=== PATIENT | male | born 1980 | race Caucasian/White ===

== ENCOUNTER 2018-08-17 01:40 | Inpatient (IN) | payer OTHER ==
[2018-08-17 02:04] VITALS: BMI 25.8
--- NOTE | 2018-08-17 02:40 | PDOC ---
History of Present Illness - General Chief Complaint: RX Refill Stated Complaint: INJURY Time Seen by Provider: 08/17/18 02:40 History Source: Patient - History of Present Illness Initial Comments: 08/17/18 03:03 37 year old man pmhx HTn fall 899 yesterday evening was wlaking home and fell on the street fell on the R knee and felt that the knee twisted and he had some popping unable to bear weight called ems went to [facility] - XRs done, but did not understand the results can't recall what was done took tylenol cant bear weiht by himself but called ems decreased sensation on plantar protion of R foot no prior knee history or trauma 08/17/18 03:06 Past History - Past Medical History Allergies/Adverse Reactions: Allergies Allergy/AdvReac Type Severity Reaction Status Date / Time No Known Allergies Allergy Verified 08/17/18 02:02 Home Medications: Ambulatory Orders NK [No Known Home Medication] 08/17/18 - Suicide/Smoking/Psychosocial Hx Smoking History: Never smoked Have you smoked in the past 12 months: No Information on smoking cessation initiated: No Hx Alcohol Use: No Drug/Substance Use Hx: No *Physical Exam - Vital Signs Last Vital Signs Temp Pulse Resp BP Pulse Ox 97.6 F 88 20 132/79 98 08/17/18 02:02 08/17/18 02:02 08/17/18 02:02 08/17/18 02:02 08/17/18 02:02 - Physical Exam Comments: 08/17/18 03:05 R knee swelling neurovascularly intact 08/17/18 03:16 externally rotated shortened R limb R thigh tender to palpation 08/17/18 03:43 palpable popliteal oulsesm dp, pt Moderate Sedation - Procedure Monitoring Vital Signs: Procedure Monitoring Vital Signs Temperature 97.6 F 08/17/18 02:02 Pulse Rate 88 08/17/18 02:02 Respiratory Rate 20 08/17/18 02:02 Blood Pressure 132/79 08/17/18 02:02 O2 Sat by Pulse Oximetry (%) 98 08/17/18 02:02 ED Treatment Course - LABORATORY CBC & Chemistry Diagram: 08/17/18 03:34 08/17/18 03:34 Medical Decision Making - Medical Decision Making 08/17/18 03:06 ED Course: Consider hip fx vs knee fx vs dislocation vs muscle contusion cbc, cmp, pt/inr, ptt, type and screen, 08/17/18 04:46 XR: distal R femoral head fx with posterior displacement 08/17/18 04:54 consult placed to orthopedics Medicine contacted for admission patient pain controlled with morphine 08/17/18 05:02 EKG: normal sinus rhythm HR 80, narrow QRS, ST and T wave segments and morphology normal. 08/17/18 05:30 Patient admitted to medicine *DC/Admit/Observation/Transfer Diagnosis at time of Disposition: Femur fracture, right - Discharge Dispostion Condition at time of disposition: Stable Decision to Admit order: Yes - Referrals - Patient Instructions - Post Discharge Activity
--- NOTE | 2018-08-17 03:05 | PDOC ---
Attending Attestation - Resident Resident Name: BowenVick santa - ED Attending Attestation I have performed the following: I have examined & evaluated the patient, The case was reviewed & discussed with the resident, I agree w/resident's findings & plan, Exceptions are as noted - HPI HPI: 08/17/18 03:03 37 yo M h/o HTN Pt present s/p fall on the street onto the right knee last night Unable to bear weight Xrays performed Since that time, he was unable to bear weight He lives by himself and could not care for himself and called EMS - Physicial Exam PE: 08/17/18 03:04 GENERAL: The patient is in no acute distress. HEAD: Normal with no signs of trauma. EYES: PERRLA, EOMI, sclera anicteric, conjunctiva clear. ENT: Ears normal, nares patent, oropharynx clear without exudates. Moist mucous membranes. NECK: Normal range of motion, supple without lymphadenopathy, JVD, or masses. LUNGS: Breath sounds equal, clear to auscultation bilaterally. No wheezes, and no crackles. HEART:Regular rate and rhythm, normal S1 and S2 without murmur, rub or gallop. ABDOMEN: Soft, nontender, normoactive bowel sounds. No guarding, no rebound. No masses palpable. EXTREMITIES: Normal range of motion, no edema. No clubbing or cyanosis. No erythema, or tenderness. NEUROLOGICAL: Cranial nerves II through XII grossly intact. Normal speech. No focal neurological deficits. MUSCULOSKELETAL: Back non-tender to palpation, no CVA tenderness SKIN: Warm, Dry, normal turgor, no rashes or lesions noted. - Medical Decision Making 08/17/18 03:05 Knee pain s/p fall yesterday Will do Xray PErcocet/Motrin Re Assess 08/17/18 04:10 Laboratory Tests 08/17/18 03:34 PT with INR 12.00 INR 1.02 PTT (Actin FS) 28.3 08/17/18 05:01 Xray demonstrates right distal femur fracture Morphine given already, will give additional meds Will admit consult ortho in the morning EKG - Twelve-lead EKG was performed and reviewed by me. There is normal sinus rhythm with a normal rate. The axis is normal. The intervals are normal. There are no ST or T wave abnormalities. Impression: Normal twelve-lead EKG
[2018-08-17] MEDS ORDERED: ACETAMINOPHEN 500 MG TABLET (FP) PO ONE (03:06)
[2018-08-17] MEDS ORDERED: morphine CARPU-JECT 4 MG/1 ML DISP.SYRIN IVPUSH ONE ×2 (03:14→04:42)
[2018-08-17 03:53] LABS: BASO % 0.3 % (0-2.0); EOS % 0.1 % (0-4.5); HEMATOCRIT 35.7 % (35.4-49); HEMOGLOBIN 12.6 GM/dL (11.7-16.9); LYMPH % 24.5 % (8-40); MCH 33.2 pg (25.7-33.7); MCHC 35.2 g/dl (32.0-35.9); MEAN CELL VOLUME 94.2 fl (80-96); MONO % 11.6 % (3.8-10.2); NEUT % 63.5 % (42.8-82.8); PLATELET COUNT 257 K/MM3 (134-434); RBC 3.79 M/mm3 (4.00-5.60); RDW 13.3 % (11.9-15.9); WHITE BLOOD COUNT 7.1 K/mm3 (4.0-10.0)
[2018-08-17] MEDS ORDERED: morphine SULFATE 4 MG/ML VIAL ONE ×4 (03:53→12:17)
[2018-08-17 04:06] LABS: INR 1.02 (0.83-1.09)
[2018-08-17 04:09] LABS: ACTIVATED PTT 28.3 SECONDS (25.2-36.5)
[2018-08-17 04:20] LABS: ALBUMIN 3.5 g/dl (3.4-5.0); ALK PHOS 153 U/L (45-117); ANION GAP 8 MMOL/L (8-16); BILIRUBIN,TOTAL 2.5 mg/dL (0.2-1); BLOOD UREA NITROGEN 8 mg/dL (7-18); CALCIUM 8.5 mg/dL (8.5-10.1); CHLORIDE 96 mmol/L (98-107); CO2 27 mmol/L (21-32); CREATININE 0.8 mg/dL (0.55-1.3); GLUCOSE,RANDOM 103 mg/dL (74-106); POTASSIUM 3.5 mmol/L (3.5-5.1); SGOT/AST 121 U/L (15-37); SGPT/ALT 137 U/L (13-61); SODIUM 131 mmol/L (136-145); TOT PROT 7.5 g/dl (6.4-8.2)
--- NOTE | 2018-08-17 05:37 | PN ---
Teaching Attending Note Name of Resident: Karlene Mejia ATTENDING PHYSICIAN STATEMENT I saw and evaluated the patient. I reviewed the resident's note and discussed the case with the resident. I agree with the resident's findings and plan as documented. SUBJECTIVE: Patient is a 37 year old man with PMH of HTN, cholecystectomy and syncope who fell down on the street yesterday evening while walking home. He fell on the right knee and felt that the knee twisted and he had some popping. Has been unable to bear weight. Called EMS and went to [facility] - xrays done, but did not understand the results. Can't recall what was done. Took tylenol but still can't bear weight. Has decreased sensation on plantar portion of R foot. No prior knee history or trauma. OBJECTIVE: Alert Vital Signs Period Temp Pulse Resp BP Sys/Rudolph Pulse Ox Last 24 Hr 97.6 F 88 20 132/79 98-98 HEENT: No Jaundice, eye redness or discharge, PERRLA, EOMI. Normocephalic, atraumatic. External ears are normal and hearing is grossly intact. No nasal discharge. Neck: Supple, nontender. No palpable adenopathy or thyromegaly. No JVD Chest: Good effort. Clear to auscultation and percussion. Heart: Regular. No S3, rub or murmur Abdomen: Not distended, soft, nontender and no HSM. No rebound or guarding. Normoactive bowel sounds. Ext: Peripheral pulses intact. No leg edema. Right knee swelling. Externally rotated shortened right lower extremity. Right thigh tender to palpation Skin: Warm and dry. No petechiae, rash or ecchymosis. Neuro: Alert. Oriented x3. CN 2-12 grossly intact. Sensation grossly intact in all four extremities and DTR are symmetric. Home Medications Medication Instructions Recorded NK [No Known Home Medication] 08/17/18 Abnormal Lab Results 08/17/18 08/17/18 03:34 03:34 RBC 3.79 L MPV 7.0 L Monocytes % 11.6 H Sodium 131 L Chloride 96 L Total Bilirubin 2.5 H AST 121 H ALT 137 H Alkaline Phosphatase 153 H ASSESSMENT AND PLAN: 1. Fall/Right femoral fracture - Possibly intoxicated at the time he fell - says he had 4 beers. Xrays confirm right distal femoral fracture with posterior displacement. Will consult Ortho, keep him NPO, give IV morphine 2 mg q4 hours PRN for pain control and IV NS a 50 ml/hour. His EKG shows NSR with no acute ST- T wave changes. 2. Abnormal LFTs - No obvious cause. Will do hepatitis serology, urinalysis and get upper abdominal sonogram. Says he drinks 10 beers every 15 days. Just in case he is a closet alcoholic, we will implement [facility] alcohol withdrawal protocol, fall and aspiration precautions. Treat with thiamine and folic acid and monitor electrolytes (Ca,Mg,K,P). Home Health Care Physician patient about abstaining from alcohol and refer to alcohol detox upon discharge. 3. Hypertension - Will reemphasize nonpharmacologic measures to control hypertension like weight loss, salt restriction and exercise discussed. 4. DVT prophylaxis - Heparin 5000u sq tid. 5. Advance directives - Full code
[2018-08-17 06:15] LABS: COCAINE, UR NEGATIVE ng/ml (CUTOFF=300); METHADONE, UR NEGATIVE ng/ml (CUTOFF=300); PHENCYCLIDINE,URINE NEGATIVE ng/ml (CUTOFF=25); URINE AMPHETAMINES NEGATIVE ng/ml (CUTOFF=500); URINE BARBITURATES NEGATIVE ng/ml (CUTOFF=200); URINE BENZODIAZEPINES NEGATIVE ng/ml (CUTOFF=200)
[2018-08-17 06:16] LABS: OPIATES, URI POSITIVE ng/ml (CUTOFF=300)
[2018-08-17] MEDS ORDERED: MORPHINE SULFATE 2 MG/ML VIAL IVPUSH PRN (06:27)
[2018-08-17] MEDS ORDERED: SENNOSIDES 8.6MG TABLET (FP) PO PRN ×2 (06:27→23:18)
[2018-08-17] MEDS ORDERED: DOCUSATE SODIUM 100 MG CAPSULE (FP) PO PRN ×2 (06:27→23:18)
[2018-08-17] MEDS ORDERED: SODIUM CHLORIDE 500 ML IV STA (06:27)
--- NOTE | 2018-08-17 06:27 | HP ---
CHIEF COMPLAINT: s/p fall, R femur fracture PCP: none HISTORY OF PRESENT ILLNESS: 37M w/ pmhx of HTN who presents with R knee pain s/p fall. Pt states he had fallen last night at around 930pm while he was walking into his building. Prior to arriving at his apartment building, he reports going to the bar and drinking 4-5 beers after which he proceeded to walk home. He states he tripped over a step next to his apartment building that he did not see because it was dark. When he fell, he landed on his R knee and felt a cracking noise followed by extreme pain. He also landed on his R arm in which he reports mild pain. He denies trauma to the head or loss of consciousness and remembers the entire incident. Prior to the fall, he denied headaches, dizziness, nausea, vomiting, weakness/numbness/tingling in his legs, vision changes and reports it was purely mechanical. He also denies being intoxicated from alcohol and denied difficulty with balance when this happened. After he fell, he reported not being able to get back up from the ground and as a result had to call for help from EMS. He was subsequently brought to [facility] where imaging was done, but he states he was not made aware of the results and was then discharged with no pain medications. When he arrived home, he complained of 10/10 pain after which he took Tylenol. Due to persistent pain, he called EMS and was brought to [facility] for further evaluation. 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 Family: Has a and 3 kids all who which in [facility] Family History: Allergies No Known Allergies Allergy (Verified 08/17/18 02:02) HOME MEDICATIONS: Home Medications Medication Instructions Recorded NK [No Known Home Medication] 08/17/18 REVIEW OF SYSTEMS CONSTITUTIONAL: Denies fever, chills, diaphoresis, generalized weakness, malaise HEENT: Denies rhinorrhea, nasal congestion, throat pain, throat swelling, difficulty swallowing, mouth swelling, ear pain, eye pain, visual changes CARDIOVASCULAR: Denies chest pain, syncope, palpitations, irregular heart rate, lightheadedness, peripheral edema RESPIRATORY: Denies cough, shortness of breath, dyspnea with exertion, orthopnea GASTROINTESTINAL: Denies abdominal pain, abdominal distension, nausea, vomiting , diarrhea, constipation, melena, hematochezia GENITOURINARY: Denies dysuria, frequency, urgency, hesitancy, hematuria MUSCULOSKELETAL: Admits to R knee pain and is unable to move it NEUROLOGIC: Unable to walk due to pain; Denies headache, focal weakness or paresthesias, dizziness, seizure, mental status changes, bladder or bowel incontinence. Denies tremors, hallucinations. PHYSICAL EXAMINATION Vital Signs - 24 hr 08/17/18 08/17/18 08/17/18 02:02 02:41 06:24 Temperature 97.6 F 98.1 F Pulse Rate 88 Pulse Rate [ 85 Left Radial] Respiratory 20 Rate Blood Pressure 132/79 Blood Pressure 113/67 [Left Arm] O2 Sat by Pulse 98 98 95 Oximetry (%) GENERAL: Pleasant, Surinamese-speaking male. AAOx3. NAD. Resting comfortably in bed. HEENT: AT/NC. EOMI. GALO. Moist mucus membranes. Facial muscles intact. NECK: Normal range of motion, supple without lymphadenopathy, JVD, or masses. LUNGS: CTA B/L. No wheezes/crackles noted. Symmetric chest rise. CHEST: Symmetric chest rise. HEART: RRR. Normal S1, S2. No murmurs noted. ABDOMEN: Soft, nontender, not distended, normoactive bowel sounds, no guarding, no rebound, no masses. No hepatomegaly or splenomegaly. MUSCULOSKELETAL: No bony deformities noted. UPPER EXTREMITIES: 2+ pulses, warm, well-perfused. No cyanosis. No clubbing. No peripheral edema. 5/5 b/l muscle strength shoulder and elbow flexion/extension. 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 LOWER EXTREMITIES: 2+ pulses, warm, well-perfused. R knee swelling with tenderness to palpation radiating to the R upper thigh. No visible ecchymoses or deformities. RLE shortened and externally rotated. LLE 5/5 hip flexion/ extension, 5/5 knee flexion/extension NEUROLOGICAL: Responds to commands. Normal speech. Unable to assess gait due to pain. Laboratory Results - last 24 hr 08/17/18 08/17/18 08/17/18 03:34 03:34 03:34 WBC 7.1 RBC 3.79 L Hgb 12.6 Hct 35.7 MCV 94.2 MCH 33.2 MCHC 35.2 RDW 13.3 Plt Count 257 MPV 7.0 L Absolute Neuts (auto) 4.5 Neutrophils % 63.5 Lymphocytes % 24.5 Monocytes % 11.6 H Eosinophils % 0.1 Basophils % 0.3 Nucleated RBC % 0 PT with INR 12.00 INR 1.02 PTT (Actin FS) 28.3 Sodium 131 L Potassium 3.5 Chloride 96 L Carbon Dioxide 27 Anion Gap 8 BUN 8 Creatinine 0.8 Creat Clearance w eGFR > 60 Random Glucose 103 Calcium 8.5 Total Bilirubin 2.5 H AST 121 H ALT 137 H Alkaline Phosphatase 153 H Total Protein 7.5 Albumin 3.5 Opiates Screen Methadone Screen Barbiturate Screen Phencyclidine Screen Ur Amphetamines Screen MDMA (Ecstasy) Screen Benzodiazepines Screen Cocaine Screen U Marijuana (THC) Screen 08/17/18 05:40 WBC RBC Hgb Hct MCV MCH MCHC RDW Plt Count MPV Absolute Neuts (auto) Neutrophils % Lymphocytes % Monocytes % Eosinophils % Basophils % Nucleated RBC % PT with INR INR PTT (Actin FS) Sodium Potassium Chloride Carbon Dioxide Anion Gap BUN Creatinine Creat Clearance w eGFR Random Glucose Calcium Total Bilirubin AST ALT Alkaline Phosphatase Total Protein Albumin Opiates Screen Positive A* Methadone Screen Negative Barbiturate Screen Negative Phencyclidine Screen Negative Ur Amphetamines Screen Negative MDMA (Ecstasy) Screen Negative Benzodiazepines Screen Negative Cocaine Screen Negative U Marijuana (THC) Screen Negative CONSULTS: Zenaida- Dr. Velazquez IMAGING: * R femur x-ray: pending final read * R knee x-ray: pending final read * RLE CT: pending final read ASSESSMENT/PLAN: 37M w/ pmhx of HTN who presents with R knee pain s/p fall #S/P fall, R femur fracture; 2/2 mechanical fall vs. alcohol intoxication -await final R femur/R knee x-rays/RLE CT -NPO/IVf -Morphine 4 mg IVP Q4H for pain -Ortho consult; await recs -Fall risk precautions #Transaminitis; may be 2/2 alcoholic liver disease -AST/ALT 121/137 -Abd U/s ordered -Hepatitis panel/Hep A & B panel, HCV PCR panel, Hep B Surface Ab, Hep B Core Ab ordered -Avoid hepatotoxic agents #Hx of Alcohol abuse; CIWA 0 -Pt states he drinks ~10-12 beers at a time -Monitor for withdrawal symptoms, none reported at this time; can start Librium protocol if needed -Alcohol cessation counseling #HTN; stable at 132/79 -Pt does not take meds at home -Cont to monitor BP #Prophylaxis -SCDs #FEN -NS x500mL -recheck lytes (Na) in AM -NPO dispo -admit to med-surg -full code Visit type - Emergency Visit Emergency Visit: Yes ED Registration Date: 08/17/18 Care time: The patient presented to the Emergency Department on the above date and was hospitalized for further evaluation of their emergent condition. - New Patient This patient is new to me today: Yes Date on this admission: 08/17/18 - Critical Care Critical Care patient: No
[2018-08-17 07:00] LABS: BASO % 0.2 % (0-2.0); EOS % 0.2 % (0-4.5); HEMATOCRIT 33.7 % (35.4-49); MCH 32.7 pg (25.7-33.7); MCHC 35.6 g/dl (32.0-35.9); MEAN CELL VOLUME 91.8 fl (80-96); MEAN PLT VOLUME 6.6 fl (7.5-11.1); MONO % 11.2 % (3.8-10.2); NEUT % 58.4 % (42.8-82.8); PLATELET COUNT 241 K/MM3 (134-434); RBC 3.67 M/mm3 (4.00-5.60); RDW 13.1 % (11.9-15.9)
[2018-08-17 07:18] LABS: INR 1.02 (0.83-1.09)
[2018-08-17 07:31] LABS: ALBUMIN 3.4 g/dl (3.4-5.0); ALK PHOS 174 U/L (45-117); ANION GAP 7 MMOL/L (8-16); BILIRUBIN,TOTAL 4.3 mg/dL (0.2-1); BLOOD UREA NITROGEN 6 mg/dL (7-18); CALCIUM 8.5 mg/dL (8.5-10.1); CHLORIDE 98 mmol/L (98-107); CO2 28 mmol/L (21-32); CREATININE 0.7 mg/dL (0.55-1.3); GLUCOSE,RANDOM 104 mg/dL (74-106); POTASSIUM 3.6 mmol/L (3.5-5.1); SGOT/AST 213 U/L (15-37); SGPT/ALT 137 U/L (13-61); SODIUM 133 mmol/L (136-145)
[2018-08-17] MEDS: morphine SULFATE 4 MG/ML VIAL IVPUSH PRN ×3 (08:10→16:28)
--- NOTE | 2018-08-17 09:06 | CONSULT ---
Consult - text type - Consultation Consultation Note: ORTHOPEDIC SURGERY CONSULTATION NOTE Department of Orthopedic Surgery HISTORY OF PRESENT ILLNESS Mr. Potter is a 37 year old male with a pmhx of HTN who presents with right knee pain s/p fall. The orthopedic service was consulted for a right distal femur fracture. Patient states he had fallen last night at around 930pm while he was walking into his building. Prior to arriving at his apartment building, he reports going to the bar and drinking 4-5 beers after which he proceeded to walk home. He states he tripped over a step next to his apartment building that he did not see because it was dark. When he fell, he landed on his right knee and felt a crack, followed by extreme pain. He denies trauma to the head or loss of consciousness and remembers the entire incident. Prior to the fall, he denied headaches, dizziness, nausea, vomiting, weakness/numbness/tingling in his legs, vision changes and reports it was purely mechanical. He also denies being intoxicated from alcohol and denied difficulty with balance when this happened. After he fell, he reported not being able to get back up from the ground. Due to persistent pain, he called EMS and was brought to [facility] for further evaluation. Denies tobacco use, drug use, but was drinking the night of the incident. The patient lives with family and uses no assistive devices at baseline. FAMILY HISTORY na REVIEW OF SYMPTOMS A twelve-point review of systems was performed and was negative except as noted in HPI. PHYSICAL EXAM Constitutional: Alert and oriented to person, place, and time. Appears well- developed and well-nourished. No acute distress, appropriate mood and affect. Right Upper Extremity: Skin warm, dry, and intact; no lesions, rashes or ulcers noted. Muscle mass equal and symmetric to contralateral side. No atrophy noted. No masses or effusions noted. No tenderness to palpation all joints; nontender throughout rest of extremity. Full passive and active ROM, free from pain. Joints stable with no pathologic laxity. M/R/U/MSK/AX motor intact; SILT distally; 2+ radial pulses; Cap refill brisk. Tone and reflexes normal. Left Upper Extremity: Skin warm, dry, and intact; no lesions, rashes or ulcers noted. Muscle mass equal and symmetric to contralateral side. No atrophy noted. No masses or effusions noted. No tenderness to palpation all joints; nontender throughout rest of extremity. Full passive and active ROM, free from pain. Joints stable with no pathologic laxity. M/R/U/MSK/AX motor intact; SILT distally; 2+ radial pulses; Cap refill brisk. Tone and reflexes normal. Right Lower Extremity: Skin warm, dry, and intact; no lesions, rashes or ulcers noted. + Swelling and mild bruising at distal femur. Muscle mass equal and symmetric to contralateral side. No atrophy noted. Tender to palpation at the distal femur nontender throughout rest of extremity. No cords or calf tenderness No significant calf/ankle edema. LROM of the knee secondary to pain and swelling. Full passive and active ROM of the hip and ankle and foot, free from pain. Joints stable with no pathologic laxity. EHL/TA/GS motor intact; SILT distally; 2+ DP pulses; Cap refill brisk. Left Lower Extremity: Skin warm, dry, and intact; no lesions, rashes or ulcers noted. Muscle mass equal and symmetric to contralateral side. No atrophy noted. No masses or effusions noted. No tenderness to palpation all joints; nontender throughout rest of extremity. No cords or calf tenderness No significant calf/ankle edema. Full passive and active ROM, free from pain. Joints stable with no pathologic laxity. EHL/TA/GS motor intact; SILT distally; 2+ DP pulses; Cap refill brisk. Tone and reflexes normal. Able to SLR and bend knee without pain. Negative log roll. Social History Smoking history Never smoked Hx Alcohol Use Yes Allergies Allergy/AdvReac Type Severity Reaction Status Date / Time No Known Allergies Allergy Verified 08/17/18 02:02 Active Medications Generic Name Dose Route Start Last Admin Trade Name Freq PRN Reason Stop Dose Admin Docusate Sodium 100 mg 08/17/18 06:27 Colace - PO BID PRN CONSTIPATION Morphine Sulfate 4 mg 08/17/18 07:28 Morphine Sulfate IVPUSH Q4H PRN PAIN LEVEL 6-10 Polyethylene Glycol 17 gm 08/17/18 10:00 08/17/18 09:24 Miralax (For Daily Use) - PO 17 gm DAILY DUANE Administration Senna 2 tab 08/17/18 06:27 Senna - PO HS PRN CONSTIPATION Vital Signs (last) Temp Pulse Resp BP Pulse Ox 98.0 F 80 18 119/74 99 08/17/18 07:51 08/17/18 07:51 08/17/18 07:51 08/17/18 07:51 08/17/18 07:51 Intake and Output 08/15/18 08/16/18 08/17/18 23:59 23:59 23:59 Other: Voiding Method Urinal Weight 175 lb Height 5 ft 9 in Body Mass Index (BMI) 25.8 Weight Measurement Method Estimated by Staff Laboratory 08/17/18 06:50 08/17/18 06:50 PT with INR 12.00 SEC (9.7-13.0) 08/17/18 06:50 PTT (Actin FS) 28.3 SECONDS (25.2-36.5) 08/17/18 03:34 IMAGING I personally reviewed all radiographs, CT, and other imaging. They demonstrate a displaced right distal femur fracture. ASSESSMENT AND PLAN Mr. Potter is a 37 year old male presenting status post fall with a right sided distal femur fracture. We have reviewed the imaging and clinical findings in detail, as well as their potential implications. This is an operative fracture. Admit to medical team - Hold Anticoagulation Medications Keep NPO NWB RLE CBC/BMP/Coags Type and Screen/2 units PRBC on hold LR 84cc/hr EKG CXR UA - Needs Preop Medical Clearance for surgery planned for this evening 08/17/18. All questions were answered. Thank you for involving our team in the care of this patient. Please call us at [phone] with questions
[2018-08-17] MEDS: POLYETHYLENE GLYCOL 3350 119 GM BTL PO SCH ×2 (09:24→12:07)
--- NOTE | 2018-08-17 09:27 | PN ---
Physical Exam: SUBJECTIVE: Patient evaluated this morning and reports he is in pain. He has no other complaints. He had no acute events overnight. OBJECTIVE: Vital Signs Temperature 98.0 F 08/17/18 07:51 Pulse Rate 80 08/17/18 07:51 Respiratory Rate 18 08/17/18 07:51 Blood Pressure 119/74 08/17/18 07:51 O2 Sat by Pulse Oximetry (%) 99 08/17/18 07:51 GENERAL: The patient is awake, alert, and fully oriented, in no acute distress. HEAD: Normal with no signs of trauma. EYES: PERRL, extraocular movements intact LUNGS: Breath sounds equal, clear to auscultation bilaterally HEART: Regular rate and rhythm, S1, S2 without murmur, rub or gallop. ABDOMEN: Soft, nontender, nondistended, normoactive bowel sounds, no guarding EXTREMITIES: 2+ pulses, warm, well-perfused, R knee swelling, tender to palpation, externally rotated PSYCH: Normal mood, normal affect. SKIN: Warm, dry, normal turgor, no rashes or lesions noted CBC, BMP 08/17/18 06:50 08/17/18 06:50 Active Medications Docusate Sodium (Colace -) 100 mg PO BID PRN PRN Reason: CONSTIPATION Morphine Sulfate (Morphine Sulfate) 4 mg IVPUSH Q4H PRN PRN Reason: PAIN LEVEL 6-10 Polyethylene Glycol (Miralax (For Daily Use) -) 17 gm PO DAILY DUANE Senna (Senna -) 2 tab PO HS PRN PRN Reason: CONSTIPATION ASSESSMENT/PLAN: Patient is a 37 y/o male with a history of HTN who presents with a R sided distal femur fracture s/p fall. #R sided distal femur fracture 2/2 to mechanical fall - Lower extremity CT: comminuted slightly displaced and partially impacted fracture of distal femur - preop surgery tonight - NPO - 4mg morphine q4h - pre op chest xray, pelvis and hip xray, ua - LR @ 84 cc/hr - CAMP periopeative yokasta 0.1% LILLIAN risk - hold anticoagulation - fall risk precautions - surgery [address] Nelson #transaminitis likely 2/2 to alcohol use - f/u hepatits panel - US of liver: hepatomegaly with fatty infiltration vs hepatocellular diseas - tox screen negative, alcohol level negative - continue to trend AST/ALT - avoid hepatotoxic agents #HTN - stable off medication #DVT ppx - SCD's FEN - NPO until post op - LR @ 84 Dispo: f/u s/p surgery Visit type - Emergency Visit Emergency Visit: Yes ED Registration Date: 08/17/18 Care time: The patient presented to the Emergency Department on the above date and was hospitalized for further evaluation of their emergent condition. - New Patient This patient is new to me today: Yes Date on this admission: 08/17/18 - Critical Care Critical Care patient: No
[2018-08-17] MEDS ORDERED: ENOXAPARIN NA (PORCINE) 40 MG/0.4 ML DISP.SYRIN SQ SCH (10:00)
[2018-08-17] MEDS ORDERED: LACTATED RINGERS SOLUTION 1,000 ML/1,000 ML INFUS.BAG IV SCH ×2 (12:30→23:18)
--- NOTE | 2018-08-17 12:56 | EKG ---
Test Reason : Blood Pressure : / mmHG Vent. Rate : 080 BPM Atrial Rate : 080 BPM P-R Int : 138 ms QRS Dur : 100 ms QT Int : 402 ms P-R-T Axes : 041 042 047 degrees QTc Int : 463 ms NORMAL SINUS RHYTHM NORMAL ECG NO PREVIOUS ECGS AVAILABLE Confirmed by COLBY DOWD, TOMEKA ([id number]) on 08/17/2018 12:56:35 PM Referred By: Confirmed By:TOMEKA BOWMAN MD
[2018-08-17 13:48] LABS: BILIRUBIN,DIRECT 2.1 mg/dL (0.0-0.2)
[2018-08-17 14:03] LABS: URINE APPEARANCE CLEAR; URINE BILIRUBIN NEGATIVE (<2.0 mg/dL); URINE COLOR AMBER; URINE GLUCOSE (UA) NEGATIVE (NEGATIVE); URINE KETONE 1+ (NEGATIVE); URINE LEUK ESTERASE NEGATIVE (NEGATIVE); URINE NITRITE NEGATIVE (NEGATIVE); URINE PROTEIN NEGATIVE (NEGATIVE); URINE UROBILINOGEN 4.0 E.U/dl mg/dL (0.2-1.0)
--- NOTE | 2018-08-17 15:29 | PN ---
Teaching Attending Note Name of Resident: Pham Crocker ATTENDING PHYSICIAN STATEMENT I saw and evaluated the patient. I reviewed the resident's note and discussed the case with the resident. I agree with the resident's findings and plan as documented. SUBJECTIVE: Complains of R leg discomfort, improved with IV morphine. No CP/ palps/SOB. OBJECTIVE: Afebrile, Hemodynamically Stable. Last Vital Signs Temp Pulse Resp BP Pulse Ox 98.8 F 74 18 132/73 99 08/17/18 14:31 08/17/18 14:31 08/17/18 14:31 08/17/18 14:31 08/17/18 14:31 HEENT - Atraumatic, Normocephalic Neuro - AAO x 3. Tone/Power normal - R LE not examined due to fracture. Heart - S1, S2, RRR Lungs - clear to auscultation, no crackles/wheeze. Abdomen - Soft, non-tender. Bowel Sounds normal. Extremities - No calf swelling/tenderness. Laboratory Results - last 24 hr 08/17/18 08/17/18 08/17/18 03:34 03:34 03:34 WBC 7.1 RBC 3.79 L Hgb 12.6 Hct 35.7 MCV 94.2 MCH 33.2 MCHC 35.2 RDW 13.3 Plt Count 257 MPV 7.0 L Absolute Neuts (auto) 4.5 Neutrophils % 63.5 Lymphocytes % 24.5 Monocytes % 11.6 H Eosinophils % 0.1 Basophils % 0.3 Nucleated RBC % 0 PT with INR 12.00 INR 1.02 PTT (Actin FS) 28.3 Sodium 131 L Potassium 3.5 Chloride 96 L Carbon Dioxide 27 Anion Gap 8 BUN 8 Creatinine 0.8 Creat Clearance w eGFR > 60 Random Glucose 103 Calcium 8.5 Total Bilirubin 2.5 H Direct Bilirubin AST 121 H ALT 137 H Alkaline Phosphatase 153 H Total Protein 7.5 Albumin 3.5 Urine Color Urine Appearance Urine pH Ur Specific Lefor Urine Protein Urine Glucose (UA) Urine Ketones Urine Blood Urine Nitrite Urine Bilirubin Urine Urobilinogen Ur Leukocyte Esterase Opiates Screen Methadone Screen Barbiturate Screen Phencyclidine Screen Ur Amphetamines Screen MDMA (Ecstasy) Screen Benzodiazepines Screen Cocaine Screen U Marijuana (THC) Screen Alcohol, Quantitative Blood Type Antibody Screen 02/15/19 02/15/19 02/15/19 03:34 05:40 06:50 WBC 8.0 RBC 3.67 L Hgb 12.0 Hct 33.7 L MCV 91.8 MCH 32.7 MCHC 35.6 RDW 13.1 Plt Count 241 MPV 6.6 L Absolute Neuts (auto) 4.7 Neutrophils % 58.4 Lymphocytes % 30.0 D Monocytes % 11.2 H Eosinophils % 0.2 D Basophils % 0.2 Nucleated RBC % 0 PT with INR INR PTT (Actin FS) Sodium Potassium Chloride Carbon Dioxide Anion Gap BUN Creatinine Creat Clearance w eGFR Random Glucose Calcium Total Bilirubin Direct Bilirubin AST ALT Alkaline Phosphatase Total Protein Albumin Urine Color Urine Appearance Urine pH Ur Specific [place] Urine Protein Urine Glucose (UA) Urine Ketones Urine Blood Urine Nitrite Urine Bilirubin Urine Urobilinogen Ur Leukocyte Esterase Opiates Screen Positive A* Methadone Screen Negative Barbiturate Screen Negative Phencyclidine Screen Negative Ur Amphetamines Screen Negative MDMA (Ecstasy) Screen Negative Benzodiazepines Screen Negative Cocaine Screen Negative U Marijuana (THC) Screen Negative Alcohol, Quantitative Blood Type A POSITIVE Antibody Screen Negative 08/17/18 08/17/18 08/17/18 06:50 06:50 06:50 WBC RBC Hgb Hct MCV MCH MCHC RDW Plt Count MPV Absolute Neuts (auto) Neutrophils % Lymphocytes % Monocytes % Eosinophils % Basophils % Nucleated RBC % PT with INR 12.00 INR 1.02 PTT (Actin FS) Sodium 133 L Potassium 3.6 Chloride 98 Carbon Dioxide 28 Anion Gap 7 L BUN 6 L Creatinine 0.7 Creat Clearance w eGFR > 60 Random Glucose 104 Calcium 8.5 Total Bilirubin 4.3 H Direct Bilirubin 2.1 H AST 213 H ALT 137 H Alkaline Phosphatase 174 H Total Protein 7.0 Albumin 3.4 Urine Color Urine Appearance Urine pH Ur Specific [place]or Urine Protein Urine Glucose (UA) Urine Ketones Urine Blood Urine Nitrite Urine Bilirubin Urine Urobilinogen Ur Leukocyte Esterase Opiates Screen Methadone Screen Barbiturate Screen Phencyclidine Screen Ur Amphetamines Screen MDMA (Ecstasy) Screen Benzodiazepines Screen Cocaine Screen U Marijuana (THC) Screen Alcohol, Quantitative < 3.0 Blood Type Antibody Screen 08/17/18 08/17/18 07:35 12:22 WBC RBC Hgb Hct MCV MCH MCHC RDW Plt Count MPV Absolute Neuts (auto) Neutrophils % Lymphocytes % Monocytes % Eosinophils % Basophils % Nucleated RBC % PT with INR INR PTT (Actin FS) Sodium Potassium Chloride Carbon Dioxide Anion Gap BUN Creatinine Creat Clearance w eGFR Random Glucose Calcium Total Bilirubin Direct Bilirubin AST ALT Alkaline Phosphatase Total Protein Albumin Urine Color Shaneka Urine Appearance Clear Urine pH 6.0 Ur Specific Lefor 1.012 Urine Protein Negative Urine Glucose (UA) Negative Urine Ketones 1+ H Urine Blood Negative Urine Nitrite Negative Urine Bilirubin Negative Urine Urobilinogen 4.0 e.u/dl Ur Leukocyte Esterase Negative Opiates Screen Methadone Screen Barbiturate Screen Phencyclidine Screen Ur Amphetamines Screen MDMA (Ecstasy) Screen Benzodiazepines Screen Cocaine Screen U Marijuana (THC) Screen Alcohol, Quantitative Blood Type A POSITIVE Antibody Screen Current Medications Generic Name Dose Route Start Last Admin Trade Name Freq PRN Reason Stop Dose Admin Docusate Sodium 100 mg 08/17/18 06:27 Colace - PO BID PRN CONSTIPATION Lactated Ringer's 1,000 ml in 1,000 mls @ 84 mls/hr 08/17/18 12:30 08/17/18 12:26 Lactated Ringers Solution IV 84 mls/hr ASDIR DUANE Administration Morphine Sulfate 4 mg 08/17/18 07:28 08/17/18 12:15 Morphine Sulfate IVPUSH 4 mg Q4H PRN Administration PAIN LEVEL 6-10 Polyethylene Glycol 17 gm 08/17/18 10:00 08/17/18 12:07 Miralax (For Daily Use) - PO Not Given DAILY DUANE Senna 2 tab 08/17/18 06:27 Senna - PO HS PRN CONSTIPATION ASSESSMENT/PLAN 37 year old Male with history of HTN, presents with R leg/knee discomfort after fall due to inebriation. 1. R Femur fracture s/p mechanical fall due to Alcohol Intoxication LLE CT - R comminuted, displaced, and impacted distal femur fracture NPO/IV Fluids Eval by Ortho - for Surgery today. Morphine prn for Analgesia. Jaclyn-operative IV hydration and post-op DVT Px with Heparin/PT. 2. Acute Hepatitis TBil 4.3/AST 213, ALT 137 Likely secondary to Alcohol excess Abdominal US - s/p neno, hepatomegaly - fatty liver versus hepatocellular disease. Hepatitis panel pending. 3. History of HTN - Stable. Not on home meds. DVT Px - Heparin post-op
[2018-08-17] MEDS ORDERED: ONDANSETRON 4 MG/2 ML VIAL IVPUSH PRN ×2 (17:26→23:18)
[2018-08-17] MEDS ORDERED: PROMETHAZINE HCL 25 MG/1 ML VIAL IVPB PRN ×2 (17:26→23:18)
[2018-08-17] MEDS ORDERED: DEXAMETHASONE SOD PHOSPHATE 4 MG/1 ML VIAL IVPUSH PRN ×2 (17:26→23:18)
[2018-08-17] MEDS ORDERED: HYDROmorphone *PCA* 10MG/50ML DISP.SYRIN PCA SCH ×2 (17:30→23:25)
[2018-08-17] MEDS ORDERED: LACTATED RINGERS SOLUTION 1,000 ML IV SCH (17:30)
[2018-08-17] MEDS ORDERED: LIDOCAINE HCL/PF 2% SDV 5ML VIAL ONE (17:58)
[2018-08-17] MEDS ORDERED: PROPOFOL 20 ML ONE ×4 (17:58→21:38)
[2018-08-17] MEDS ORDERED: ROCURONIUM BROMIDE 50 MG/5 ML VIAL ONE ×2 (17:58→21:33)
[2018-08-17] MEDS ORDERED: fentaNYL CITRATE 250 MCG/5 ML VIAL ONE ×2 (18:21→19:06)
[2018-08-17] MEDS ORDERED: MIDAZOLAM HCL 2 MG/2 ML SINGLE DOSE VIAL ONE (18:21)
[2018-08-17] MEDS ORDERED: DESFLURANE GAS 240 ML BOTTLE IH ONE (18:45)
[2018-08-17] MEDS ORDERED: ceFAZolin SODIUM 1 GM VIAL ONE (18:53)
[2018-08-17] MEDS ORDERED: ceFAZolin SODIUM 1 GM VIAL IVPB ONE (18:55)
[2018-08-17] MEDS ORDERED: DEXAMETHASONE SOD PHOSPHATE 4 MG/1 ML VIAL ONE (18:55)
[2018-08-17] MEDS ORDERED: ONDANSETRON 4 MG/2 ML VIAL ONE (18:55)
[2018-08-17] MEDS ORDERED: METOPROLOL TARTRATE 5 MG/5 ML VIAL ONE (20:41)
[2018-08-17] MEDS ORDERED: KETOROLAC TROMETHAMINE 30 MG/1 ML VIAL ONE (21:31)
[2018-08-17] MEDS ORDERED: NEOSTIGMINE METHYLSULFATE 0.5 MG/1 ML - 10 ML MDV ONE (21:36)
[2018-08-17] MEDS ORDERED: GLYCOPYRROLATE 0.2 MG/1 ML VIAL ONE (21:36)
[2018-08-17] MEDS ORDERED: HYDROmorphone *PCA* 10MG/50ML DISP.SYRIN PCA ONE (22:31)
--- NOTE | 2018-08-17 22:36 | OPR ---
OPERATIVE NOTE DATE OF OPERATION: 08/17/18 TITLE OF OPERATION: Open reduction and internal fixation of a right distal femur fracture. INDICATIONS: Mr. Potter is a 37 year old male who presented with a right distal femur fracture. The treatment options and alternatives, surgical procedure, risks and benefits, and post-operative course were discussed with the patient. Surgery was indicated for reduction and stabilization of the fracture to prevent injury and allow healing. He elected to proceed and consents were signed. PRE-PROCEDURE DIAGNOSIS: Right distal femur fracture. POST-PROCEDURE DIAGNOSIS: Same SURGEON: Raffi Nelson DO ASSISTANTS: Ray Velazquez DO ANESTHESIA: General IMPLANT: Obinna Distal Femur 8-hole plate TOURNIQUET TIME: 110 mins. EBL: 200ml COMPLICATIONS: None PROCEDURE DETAILS: After obtained informed consent using a human resources vice president service, the patient was taken back to the operating room, placed supine on the operating table. General endotracheal anesthesia was induced. Antibiotic prophylaxis was appropriately given. The patient was then repositioned on the operating table with all extremities secured and well padded. The right lower extremity was prepped and draped in the usual fashion. A tourniquet was used. A time-out was appropriately performed recognizing the patient and correct extremity. Procedure starts with a direct lateral approach to the distal femur. This was a classic lateral approach. We used a 10 mm blade and Bovie cautery for coagulation. Dissected down to the IT band, retracting soft tissue with Weitlaner and using an elevator. We opened IT band sharply with a 10 mm blade, and lifted the vastus lateralis anteromedially, being careful to cauterize any bleeders with the bovie. At this point, we proceeded with the fracture reduction. The intra-articular split was minimal to nondisplaced on imaging. We therefore decided to lag through the plate the intercondylar split. We selected our implant, which was a Spalding distal femur 8-hole plate. The plate was assembled with the aiming arm, and was placed submuscularly onto the distal femur. We brought the fracture out to length and maintained anatomic alignment and then secured the plate first distally with K-wires after having confirmed appropriate position. Proximally, the plate was secured temporary with the percutaneous K-wire inserted through a separate stab incision using the external aiming arm. We confirmed the fracture alignment and then proceeded with the fixation. After confirming acceptable alignment of the plate, we fixed the plate proximally with a 4.5 x 44mm cortex screw. We then fixated the distal locking screws measuring at 5.0mm x 75mm (3), 5.0 x 80mm (2), and one 5.0 x 30mm screw at the most distal portion of the plate to avoid going into the notch. The plate was then secured proximally with a sequence of 4.5 mm cortex screws at sizes 36mm, and 40mm. We took images in AP and lateral. We were satisfied with obtained reduction and alignment. This completed the internal fixation. Soft tissues were copiously irrigated and closed sequentially using 0 Vicryl for the IT band, 2-0 Vicryl for subcutaneous, and vicky for the skin. Sterile dressing with Aquacel. At the end of procedure, the patient was successfully awakened in the operating room, and brought back to postop care in stable condition. The patient tolerated the procedure well. PLAN: NWB RLE Physical Therapy daily MEDICAL INSTRUMENT CABLE FABRICATOR - DC in AM Active ROM only of the right knee. Follow up in clinic in 2 weeks for wound check and staple removal. DVT prophylaxis Lovenox 40mg SQ Daily for 30 days. Rest/Ice/Elevate RLE. SCD to LLE while in bed. Raffi Nelson DO Orthopedic Surgery
[2018-08-17] MEDS: HYDROmorphone *PCA* 10MG/50ML DISP.SYRIN PCA SCH (22:50)
[2018-08-17 22:52] LABS: BASO % 0.2 % (0-2.0); HEMATOCRIT 28.7 % (35.4-49); HEMOGLOBIN 10.2 GM/dL (11.7-16.9); LYMPH % 9.6 % (8-40); MCH 33.2 pg (25.7-33.7); MCHC 35.6 g/dl (32.0-35.9); MEAN CELL VOLUME 93.2 fl (80-96); MEAN PLT VOLUME 6.8 fl (7.5-11.1); MONO % 4.5 % (3.8-10.2); NEUT % 85.7 % (42.8-82.8); PLATELET COUNT 231 K/MM3 (134-434); RBC 3.08 M/mm3 (4.00-5.60); RDW 13.2 % (11.9-15.9); WHITE BLOOD COUNT 8.2 K/mm3 (4.0-10.0)
[2018-08-18 01:12] LABS: HEP.C VIRUS AB 0.1 s/co ratio (0.0-0.9)
[2018-08-18] MEDS: CEFAZOLIN 2 GM/D5W 2 GM/50 ML ML IVPB SCH ×3 (03:00→12:09)
[2018-08-18 04:15] LABS: HEPATITIS B CORE ANTIBODY,IGM Negative (Negative)
[2018-08-18] MEDS: LACTATED RINGERS SOLUTION 1,000 ML IV SCH ×2 (05:00→14:27)
[2018-08-18 08:06] LABS: HEMATOCRIT 23.4 % (35.4-49); HEMOGLOBIN 8.4 GM/dL (11.7-16.9); MCH 33.5 pg (25.7-33.7); MCHC 35.9 g/dl (32.0-35.9); MEAN CELL VOLUME 93.2 fl (80-96); MEAN PLT VOLUME 7.5 fl (7.5-11.1); PLATELET COUNT 207 K/MM3 (134-434); RBC 2.51 M/mm3 (4.00-5.60); RDW 13.1 % (11.9-15.9); WHITE BLOOD COUNT 8.9 K/mm3 (4.0-10.0)
[2018-08-18 08:39] LABS: INR 0.98 (0.83-1.09); PROTHROMBIN TIME (PATIENT) 11.6 SEC (9.7-13.0)
[2018-08-18 08:51] LABS: ALBUMIN 2.6 g/dl (3.4-5.0); ALK PHOS 172 U/L (45-117); ANION GAP 8 MMOL/L (8-16); BILIRUBIN,TOTAL 1.9 mg/dL (0.2-1); BLOOD UREA NITROGEN 5 mg/dL (7-18); CALCIUM 8.4 mg/dL (8.5-10.1); CHLORIDE 98 mmol/L (98-107); CO2 28 mmol/L (21-32); CREATININE 0.8 mg/dL (0.55-1.3); GLUCOSE,RANDOM 113 mg/dL (74-106); SGOT/AST 179 U/L (15-37); SGPT/ALT 133 U/L (13-61); SODIUM 133 mmol/L (136-145); TOT PROT 5.8 g/dl (6.4-8.2)
[2018-08-18] MEDS: ENOXAPARIN NA (PORCINE) 40 MG/0.4 ML DISP.SYRIN SQ SCH (09:50)
[2018-08-18] MEDS: POLYETHYLENE GLYCOL 3350 119 GM BTL PO SCH (09:56)
--- NOTE | 2018-08-18 11:08 | PN ---
Progress Note (short form) - Note Progress Note: ORTHOPEDIC SURGERY PROGRESS NOTE Department of Orthopedic Surgery SUBJECTIVE No acute events overnight. No complaints currently. Denies chest pain, shortness of breath, or calf pain. No nausea or vomiting. Tolerating oral intake. Pain control difficult overnight, but improving. PHYSICAL EXAMINATION General: Alert, oriented, cooperative and no distress. Left Lower Extremity: Dressing and brace intact; Skin intact, no lesions, rashes or ulcers noted. Muscle mass equal and symmetric to contralateral side. No atrophy noted. No masses or effusions noted. No tenderness to palpation. Full passive and active ROM, free from pain. EHL/TA/GS motor intact; SILT distally; 2+ DP pulses; Cap refill brisk. Compartments soft / compressible. DVT Exam: No evidence of DVT seen on physical exam; No cords or calf tenderness ; No significant calf/ankle edema. Social History Smoking history Never smoked Hx Alcohol Use Yes Allergies Allergy/AdvReac Type Severity Reaction Status Date / Time No Known Allergies Allergy Verified 08/17/18 02:02 Active Medications Generic Name Dose Route Start Last Admin Trade Name Freq PRN Reason Stop Dose Admin Dexamethasone Sodium Phosphate 4 mg 08/17/18 23:18 Decadron Injection - IVPUSH ONCE PRN NAUSEA AND/OR VOMITING Diphenhydramine HCl 12.5 mg 08/17/18 23:18 Benadryl Injection - IVPUSH ONCE PRN FOR ITCHING Docusate Sodium 100 mg 08/17/18 23:18 Colace - PO BID PRN CONSTIPATION Enoxaparin Sodium 40 mg 08/18/18 10:00 08/18/18 09:50 Lovenox - SQ 40 mg DAILY DUANE Administration Hydromorphone HCl 10 mg 08/17/18 23:25 Dilaudid Linoleum Layer - METAL FURNACE OPERATOR 08/24/18 17:27 METAL FURNACE OPERATOR DUANE Protocol Cefazolin Sodium/Dextrose 2 gm in 50 mls @ 100 mls/hr 08/18/18 03:00 09:58 Ancef 2 Gm Premixed Ivpb - IVPB 08/18/18 11:29 100 mls/hr Q8H DUANE Administration Lactated Ringer's 1,000 mls @ 125 mls/hr 08/17/18 23:18 08/18/18 05:00 Lactated Ringers Solution IV 125 mls/hr ASDIR DUANE Administration Ondansetron HCl 4 mg 08/17/18 23:18 Zofran Injection IVPUSH Q4H PRN NAUSEA AND/OR VOMITING Polyethylene Glycol 17 gm 08/18/18 10:00 08/18/18 09:56 Miralax (For Daily Use) - PO 17 gm DAILY DUANE Administration Promethazine HCl 12.5 mg 08/17/18 23:18 Phenergan Injection - IVPB Q6H PRN NAUSEA AND/OR VOMITING Senna 2 tab 08/17/18 23:18 Senna - PO HS PRN CONSTIPATION Vital Signs (last) Temp Pulse Resp BP Pulse Ox 98.7 F 87 16 137/63 97 08/18/18 09:33 08/18/18 09:33 08/18/18 09:33 08/18/18 09:33 08/18/18 10:36 Intake and Output 08/16/18 08/17/18 08/18/18 23:59 23:59 23:59 Intake Total 1800 1450 Output Total 400 400 Balance 1400 1050 Intake: IV 1800 1000 Lactated Ringers Solution 1000 1,000 ml @ 125 mls/hr IV ASDIR DUANE Rx#: [id number] IVPB 50 Oral 400 Output: Urine 200 400 Void 200 400 Estimated Blood Loss 200 Other: Voiding Method Urinal Urinal Bowel Movement No Weight 175 lb Height 5 ft 9 in Body Mass Index (BMI) 25.8 Weight Measurement Method Estimated by Staff Laboratory 08/18/18 06:40 08/18/18 06:40 PT with INR 11.60 SEC (9.7-13.0) 08/18/18 06:40 PTT (Actin FS) 28.3 SECONDS (25.2-36.5) 08/17/18 03:34 ASSESSMENT AND PLAN Mr. Potter is a 37 year old male s/p Right distal femur ORIF POD 1 - Pain control: Transition to oral pain medications, minimize narcotic use - Follow up Repeat CBC, transfuse if necessary. - DC METAL FURNACE OPERATOR - transition to oral medications - DVT prophylaxis - Lovenox 40mg SQ daily for 30 days - Ice/Elevation RLE in Knee immobilizer - Elevate HOB, encourage oral intake - Appreciate medical management (Nutrition optimization, decubitus precautions heel/sacrum) - PT Daily: NWB RLE; Active knee ROM only. - Dispo planning - DC [place] POD 14 - Dressing change POD 7, and every 3 days thereafter - Patient should follow up in my office in 2 weeks Raffi Nelson, DO Orthopedic Surgery
--- NOTE | 2018-08-18 11:41 | PN ---
Progress Note (short form) - Note Progress Note: POD #1 - s/p ORIF of right distal femur under GA with dilaudid COVER STITCH MACHINE OPERATOR for post-op pain management. VSS. Pt. doing well, resting comfortably in bed. No complaints. No apparent anesthetic complications noted. Good pain control. Will discontinue COVER STITCH MACHINE OPERATOR as per surgeon.
[2018-08-18] MEDS ORDERED: oxyCODONE HCL 5 MG TABLET PO PRN (11:42)
[2018-08-18 13:12] LABS: HBSAG SCREEN Negative (Negative); HEP A AB, IGM Negative (Negative); HEP B CORE AB, TOT Negative (Negative)
[2018-08-18] MEDS: ACETAMINOPHEN 325 MG TABLET (FP) PO SCH ×3 (14:06→18:24)
[2018-08-18] MEDS: oxyCODONE HCL 5 MG TABLET PO PRN ×2 (14:28→21:29)
--- NOTE | 2018-08-18 15:29 | PN ---
Teaching Attending Note Name of Resident: Pham Crocker ATTENDING PHYSICIAN STATEMENT I saw and evaluated the patient. I reviewed the resident's note and discussed the case with the resident. I agree with the resident's findings and plan as documented. SUBJECTIVE: Complains of R leg discomfort POD 1 s/p ORIF, improved with IV morphine. No CP/palps/SOB. Tolerating po intake. Passed flatus. OBJECTIVE: Afebrile, Hemodynamically Stable. Last Vital Signs Temp Pulse Resp BP Pulse Ox 98.9 F 98 H 16 114/66 97 08/18/18 14:33 08/18/18 14:33 08/18/18 10:00 08/18/18 14:33 08/18/18 10:36 HEENT - Atraumatic, Normocephalic Neuro - AAO x 3. Tone/Power normal - R LE exam deferred. All extremities neurovascularly intact. Heart - S1, S2, RRR Lungs - clear to auscultation, no crackles/wheeze. Abdomen - Soft, non-tender. Bowel Sounds normal. Extremities - No calf swelling/tenderness. RLE surgical site dressed and immobilized. Laboratory Results - last 24 hr 08/17/18 08/17/18 08/17/18 06:50 07:35 10:20 WBC RBC Hgb Hct MCV MCH MCHC RDW Plt Count MPV Absolute Neuts (auto) Neutrophils % Lymphocytes % Monocytes % Eosinophils % Basophils % Nucleated RBC % PT with INR INR Sodium Potassium Chloride Carbon Dioxide Anion Gap BUN Creatinine Creat Clearance w eGFR Random Glucose Calcium Total Bilirubin AST ALT Alkaline Phosphatase Total Protein Albumin Acetaminophen < 2.0 L Hepatitis A IgM Ab Negative Hep A IgM Ab Confirm Negative Hepatitis A Ab Total Positive H Hep Bs Antigen Negative Negative Hep Bs Antibody Non reactive Hep Bs Antibody, Quant Hep B Core Total Ab Negative Hep B Core IgM Ab Negative Negative Hepatitis C Antibody 0.1 08/17/18 08/17/18 08/18/18 10:20 22:25 06:40 WBC 8.2 8.9 RBC 3.08 L 2.51 L Hgb 10.2 L 8.4 L Hct 28.7 L 23.4 L D MCV 93.2 93.2 MCH 33.2 33.5 MCHC 35.6 35.9 RDW 13.2 13.1 Plt Count 231 207 MPV 6.8 L 7.5 D Absolute Neuts (auto) 7.0 Neutrophils % 85.7 H D Lymphocytes % 9.6 D Monocytes % 4.5 Eosinophils % 0.0 D Basophils % 0.2 Nucleated RBC % 0 PT with INR INR Sodium Potassium Chloride Carbon Dioxide Anion Gap BUN Creatinine Creat Clearance w eGFR Random Glucose Calcium Total Bilirubin AST ALT Alkaline Phosphatase Total Protein Albumin Acetaminophen Hepatitis A IgM Ab Hep A IgM Ab Confirm Hepatitis A Ab Total Hep Bs Antigen Hep Bs Antibody Hep Bs Antibody, Quant <3.1 L Hep B Core Total Ab Hep B Core IgM Ab Hepatitis C Antibody 08/18/18 08/18/18 06:40 06:40 WBC RBC Hgb Hct MCV MCH MCHC RDW Plt Count MPV Absolute Neuts (auto) Neutrophils % Lymphocytes % Monocytes % Eosinophils % Basophils % Nucleated RBC % PT with INR 11.60 INR 0.98 Sodium 133 L Potassium 4.0 Chloride 98 Carbon Dioxide 28 Anion Gap 8 BUN 5 L Creatinine 0.8 Creat Clearance w eGFR > 60 Random Glucose 113 H Calcium 8.4 L Total Bilirubin 1.9 H AST 179 H ALT 133 H Alkaline Phosphatase 172 H Total Protein 5.8 L Albumin 2.6 L Acetaminophen Hepatitis A IgM Ab Hep A IgM Ab Confirm Hepatitis A Ab Total Hep Bs Antigen Hep Bs Antibody Hep Bs Antibody, Quant Hep B Core Total Ab Hep B Core IgM Ab Hepatitis C Antibody Current Medications Generic Name Dose Route Start Last Admin Trade Name Freq PRN Reason Stop Dose Admin Acetaminophen 650 mg 08/18/18 11:45 08/18/18 14:29 Tylenol - PO 650 mg Q6H DUANE Administration Dexamethasone Sodium Phosphate 4 mg 08/17/18 23:18 Decadron Injection - IVPUSH ONCE PRN NAUSEA AND/OR VOMITING Diphenhydramine HCl 12.5 mg 08/17/18 23:18 Benadryl Injection - IVPUSH ONCE PRN FOR ITCHING Docusate Sodium 100 mg 08/17/18 23:18 Colace - PO BID PRN CONSTIPATION Enoxaparin Sodium 40 mg 08/18/18 10:00 08/18/18 09:50 Lovenox - SQ 40 mg DAILY DUANE Administration Hydromorphone HCl 10 mg 08/17/18 23:25 08/18/18 12:28 Dilaudid Horse Rider - PADDING GLUER 08/24/18 17:27 Not Given PADDING GLUER DUANE Protocol Lactated Ringer's 1,000 mls @ 125 mls/hr 08/17/18 23:18 08/18/18 14:27 Lactated Ringers Solution IV 125 mls/hr ASDIR DUANE Administration Ondansetron HCl 4 mg 08/17/18 23:18 Zofran Injection IVPUSH Q4H PRN NAUSEA AND/OR VOMITING Oxycodone HCl 5 mg 08/18/18 11:42 Roxicodone - PO Q4H PRN PAIN LEVEL 1-5 Oxycodone HCl 10 mg 08/18/18 11:43 08/18/18 14:28 Roxicodone - PO 10 mg Q4H PRN Administration PAIN LEVEL 6-10 Polyethylene Glycol 17 gm 08/18/18 10:00 08/18/18 09:56 Miralax (For Daily Use) - PO 17 gm DAILY DUANE Administration Promethazine HCl 12.5 mg 08/17/18 23:18 Phenergan Injection - IVPB Q6H PRN NAUSEA AND/OR VOMITING Senna 2 tab 08/17/18 23:18 Senna - PO HS PRN CONSTIPATION ASSESSMENT/PLAN 37 year old Male with history of HTN, presents with R leg/knee discomfort after fall due to inebriation. 1. R Femur fracture s/p mechanical fall due to Alcohol Intoxication LLE CT - R comminuted, displaced, and impacted distal femur fracture POD 1 s/p ORIF R distal femur PADDING GLUER discontinued, Oxycodone prn for Analgesia. Tolerating oral intake - diet resumed. IV fluids discontinued. PT 2. Acute Hepatitis, improving TBil 1.9, AST 179, ALT 133 Likely secondary to Alcohol excess Abdominal US - s/p neno, hepatomegaly - fatty liver versus hepatocellular disease. Hepatitis panel negative. 3. History of HTN - Stable. Not on any home meds. 4. Acute Blood Loss Anemia sec to Orthopedic Surgery H/H down to 8.4/23.4 from 12.1/35.7 Will start Iron supplementation. DVT Px - Lovenox for 30 days post-op Dispo - likely home with crutches, DC instructions as per Ortho.
[2018-08-18 15:50] LABS: HEMATOCRIT 22.9 % (35.4-49); HEMOGLOBIN 8.3 GM/dL (11.7-16.9); MCHC 36.3 g/dl (32.0-35.9); MEAN CELL VOLUME 93.6 fl (80-96); MEAN PLT VOLUME 7.5 fl (7.5-11.1); PLATELET COUNT 202 K/MM3 (134-434); RBC 2.44 M/mm3 (4.00-5.60); RDW 12.9 % (11.9-15.9); WHITE BLOOD COUNT 9.4 K/mm3 (4.0-10.0)
--- NOTE | 2018-08-18 18:06 | PN ---
Physical Exam: SUBJECTIVE: Patient seen this morning and without complaint. Patient had surgery last night. Reports he is eating okay and urinating. Patient's leg immobilized. OBJECTIVE: Vital Signs Temperature 98.9 F 08/18/18 14:33 Pulse Rate 98 H 08/18/18 14:33 Respiratory Rate 16 08/18/18 10:00 Blood Pressure 114/66 08/18/18 14:33 O2 Sat by Pulse Oximetry (%) 97 08/18/18 10:36 GENERAL: The patient is awake, alert, and fully oriented, in no acute distress. HEAD: Normal with no signs of trauma. EYES: PERRL, extraocular movements intact LUNGS: Breath sounds equal, clear to auscultation bilaterally HEART: Regular rate and rhythm, S1, S2 without murmur, rub or gallop. ABDOMEN: Soft, nontender, nondistended, normoactive bowel sounds, no guarding EXTREMITIES: R leg immobilized, pulses 2+ PSYCH: Normal mood, normal affect. SKIN: Warm, dry, normal turgor, no rashes or lesions noted CBC, BMP 08/18/18 15:00 08/18/18 06:40 Active Medications Acetaminophen (Tylenol -) 650 mg PO Q6H COUNTS INCLUDE 234 BEDS AT THE [facility] Last Admin: 08/18/18 14:29 Dose: 650 mg Diphenhydramine HCl (Benadryl Injection -) 12.5 mg IVPUSH ONCE PRN PRN Reason: FOR ITCHING Docusate Sodium (Colace -) 100 mg PO BID PRN PRN Reason: CONSTIPATION Enoxaparin Sodium (Lovenox -) 40 mg SQ DAILY COUNTS INCLUDE 234 BEDS AT THE [facility] Last Admin: 08/18/18 09:50 Dose: 40 mg Ferrous Sulfate (Feosol -) 325 mg PO BID COUNTS INCLUDE 234 BEDS AT THE [facility] Ondansetron HCl (Zofran Injection) 4 mg IVPUSH Q4H PRN PRN Reason: NAUSEA AND/OR VOMITING Oxycodone HCl (Roxicodone -) 5 mg PO Q4H PRN PRN Reason: PAIN LEVEL 1-5 Oxycodone HCl (Roxicodone -) 10 mg PO Q4H PRN PRN Reason: PAIN LEVEL 6-10 Last Admin: 08/18/18 14:28 Dose: 10 mg Polyethylene Glycol (Miralax (For Daily Use) -) 17 gm PO DAILY COUNTS INCLUDE 234 BEDS AT THE [facility] Last Admin: 08/18/18 09:56 Dose: 17 gm Promethazine HCl (Phenergan Injection -) 12.5 mg IVPB Q6H PRN PRN Reason: NAUSEA AND/OR VOMITING Senna (Senna -) 2 tab PO HS PRN PRN Reason: CONSTIPATION ASSESSMENT/PLAN: Patient is a 37 y/o male with a history of HTN who presents with a R sided distal femur fracture s/p fall. #R sided distal femur fracture 2/2 to mechanical fall - POD 1 - Lower extremity CT: comminuted slightly displaced and partially impacted fracture of distal femur - preop surgery tonight - oxycodone prn - CAMP periopeative yokasta 0.1% LILLIAN risk - fall risk precautions - continue to monitor Hgb: 8.3, f/u labs in morning - if Hgb continues to fall consider 1 unit transfusion #transaminitis likely 2/2 to alcohol use - hepatits panel negative - US of liver: hepatomegaly with fatty infiltration vs hepatocellular diseas - tox screen negative, alcohol level negative - AST/ALT trending down - avoid hepatotoxic agents #HTN - stable off medication #DVT ppx - lovenox 40 mg sq FEN - advance diet as tolerated Dispo: likely tomorrow, f/u PT Visit type - Emergency Visit Emergency Visit: No - New Patient This patient is new to me today: No - Critical Care Critical Care patient: No
[2018-08-18] MEDS: HYDROmorphone *PCA* 10MG/50ML DISP.SYRIN PCA SCH (18:33)
[2018-08-18] MEDS: FERROUS SO4 325 MG TABLET (FP) PO SCH (21:29)
[2018-08-19] MEDS: ACETAMINOPHEN 325 MG TABLET (FP) PO SCH ×5 (00:05→17:04)
[2018-08-19] MEDS: oxyCODONE HCL 5 MG TABLET PO PRN ×3 (06:12→21:50)
[2018-08-19 07:52] LABS: HEMATOCRIT 20.3 % (35.4-49); HEMOGLOBIN 7.4 GM/dL (11.7-16.9); MCHC 36.3 g/dl (32.0-35.9); MEAN CELL VOLUME 93.7 fl (80-96); MEAN PLT VOLUME 7.1 fl (7.5-11.1); PLATELET COUNT 178 K/MM3 (134-434); RBC 2.17 M/mm3 (4.00-5.60); RDW 12.8 % (11.9-15.9); WHITE BLOOD COUNT 6.4 K/mm3 (4.0-10.0)
[2018-08-19 08:40] LABS: ALBUMIN 2.4 g/dl (3.4-5.0); ALK PHOS 120 U/L (45-117); ANION GAP 6 MMOL/L (8-16); BILIRUBIN,TOTAL 1.2 mg/dL (0.2-1); BLOOD UREA NITROGEN 4 mg/dL (7-18); CALCIUM 7.6 mg/dL (8.5-10.1); CHLORIDE 102 mmol/L (98-107); CO2 31 mmol/L (21-32); CREATININE 0.5 mg/dL (0.55-1.3); GLUCOSE,RANDOM 84 mg/dL (74-106); POTASSIUM 3.6 mmol/L (3.5-5.1); SGOT/AST 65 U/L (15-37); SGPT/ALT 78 U/L (13-61); SODIUM 138 mmol/L (136-145); TOT PROT 5.5 g/dl (6.4-8.2)
--- NOTE | 2018-08-19 09:58 | PN ---
Progress Note (short form) - Note Progress Note: ORTHOPEDIC SURGERY PROGRESS NOTE Department of Orthopedic Surgery SUBJECTIVE No acute events overnight. No complaints currently. Denies chest pain, shortness of breath, or calf pain. No nausea or vomiting. Tolerating oral intake. Pain control difficult overnight, but improving. PHYSICAL EXAMINATION General: Alert, oriented, cooperative and no distress. Left Lower Extremity: Dressing and brace intact; Skin intact, no lesions, rashes or ulcers noted. Muscle mass equal and symmetric to contralateral side. No atrophy noted. No masses or effusions noted. No tenderness to palpation. Full passive and active ROM, free from pain. EHL/TA/GS motor intact; SILT distally; 2+ DP pulses; Cap refill brisk. Compartments soft / compressible. DVT Exam: No evidence of DVT seen on physical exam; No cords or calf tenderness ; No significant calf/ankle edema. Intake & Output 08/17/18 08/18/18 08/19/18 23:59 23:59 23:59 Intake Total 1800 3025 450 Output Total 400 2800 2400 Balance 1400 225 -1950 Intake: IV 1800 2200 Lactated Ringers Solution 1000 1,000 ml @ 125 mls/hr IV ASDIR [facility] Rx#: [id number] Lactated Ringers Solution 1200 1,000 ml @ 125 mls/hr IV ASDIR [facility] Rx#: [id number] IVPB 100 Oral 725 450 Output: Urine 200 2800 2400 Void 200 2800 2400 Estimated Blood Loss 200 Other: Voiding Method Urinal Urinal Urinal Bowel Movement No No Weight 175 lb Height 5 ft 9 in Body Mass Index (BMI) 25.8 Weight Measurement Method Estimated by Staff Active Medications Generic Name Dose Route Start Last Admin Trade Name Freq PRN Reason Stop Dose Admin Acetaminophen 650 mg 08/19/18 01:00 08/19/18 06:10 Tylenol - PO 650 mg Q6HPO DUANE Administration Diphenhydramine HCl 12.5 mg 08/17/18 23:18 Benadryl Injection - IVPUSH ONCE PRN FOR ITCHING Docusate Sodium 100 mg 08/17/18 23:18 Colace - PO BID PRN CONSTIPATION Enoxaparin Sodium 40 mg 08/18/18 10:00 08/18/18 09:50 Lovenox - SQ 40 mg DAILY DUANE Administration Ferrous Sulfate 325 mg 08/18/18 22:00 08/18/18 21:29 Feosol - PO 325 mg BID DUANE Administration Ondansetron HCl 4 mg 08/17/18 23:18 Zofran Injection IVPUSH Q4H PRN NAUSEA AND/OR VOMITING Oxycodone HCl 5 mg 08/18/18 11:42 Roxicodone - PO Q4H PRN PAIN LEVEL 1-5 Oxycodone HCl 10 mg 08/18/18 11:43 08/19/18 06:12 Roxicodone - PO 10 mg Q4H PRN Administration PAIN LEVEL 6-10 Polyethylene Glycol 17 gm 08/18/18 10:00 08/18/18 09:56 Miralax (For Daily Use) - PO 17 gm DAILY DUANE Administration Promethazine HCl 12.5 mg 08/17/18 23:18 Phenergan Injection - IVPB Q6H PRN NAUSEA AND/OR VOMITING Senna 2 tab 08/17/18 23:18 Senna - PO HS PRN CONSTIPATION Vital Signs (last) Temp Pulse Resp BP Pulse Ox 99.4 F 74 20 110/61 100 08/19/18 06:42 08/19/18 06:42 08/19/18 06:42 08/19/18 06:42 08/18/18 21:00 Laboratory (coagulation) PT with INR 11.60 SEC (9.7-13.0) 08/18/18 06:40 Laboratory 08/19/18 07:00 08/19/18 07:00 ASSESSMENT AND PLAN Mr. Potter is a 37 year old male s/p Right distal femur ORIF POD 2 - Pain control: Transition to oral pain medications, minimize narcotic use - Would recommend transfusion secondary to drop in h/h - DVT prophylaxis - Lovenox 40mg SQ daily for 30 days post op - Ice/Elevation RLE in Knee immobilizer. - Elevate HOB, encourage oral intake - Appreciate medical management (Nutrition optimization, decubitus precautions heel/sacrum) - PT Daily: NWB RLE; Active knee ROM only. - Dispo planning - DC [place] POD 14 - Dressing change POD 7, and every 3 days thereafter - Do not keep the pillow under the knee, instead keep under the lower leg/ankle only in order to keep knee extended. - Needs to start outpatient Physical Therapy after discharge. - Patient should follow up in my office in 2 weeks Raffi Nelson, DO Orthopedic Surgery
[2018-08-19] MEDS: POLYETHYLENE GLYCOL 3350 119 GM BTL PO SCH (10:56)
[2018-08-19] MEDS: ENOXAPARIN NA (PORCINE) 40 MG/0.4 ML DISP.SYRIN SQ SCH (10:56)
[2018-08-19] MEDS: FERROUS SO4 325 MG TABLET (FP) PO SCH ×2 (10:58→21:50)
--- NOTE | 2018-08-19 19:06 | PN ---
Progress Note (short form) - Note Progress Note: SUBJECTIVE: Complains of ongoing R leg discomfort POD 2 s/p ORIF, improved with IV morphine. No CP/palps/SOB. Tolerating po intake. No fever/chills. OBJECTIVE: Afebrile, Hemodynamically Stable. Last Vital Signs Temp Pulse Resp BP Pulse Ox 98.0 F 112 H 28 H 129/63 100 08/19/18 13:39 08/19/18 13:39 08/19/18 10:00 08/19/18 13:39 08/19/18 09:00 HEENT - Atraumatic, Normocephalic Neuro - AAO x 3. Tone/Power normal - R LE exam deferred. All extremities neurovascularly intact. Heart - S1, S2, RRR Lungs - clear to auscultation, no crackles/wheeze. Abdomen - Soft, non-tender. Bowel Sounds normal. Extremities - No calf swelling/tenderness. RLE surgical site dressed. Laboratory Results - last 24 hr 08/17/18 08/19/18 08/19/18 03:34 07:00 07:00 WBC 6.4 RBC 2.17 L Hgb 7.4 L Hct 20.3 L MCV 93.7 MCH 34.0 H MCHC 36.3 H RDW 12.8 Plt Count 178 MPV 7.1 L Sodium 138 Potassium 3.6 Chloride 102 Carbon Dioxide 31 Anion Gap 6 L BUN 4 L Creatinine 0.5 L Creat Clearance w eGFR > 60 Random Glucose 84 Calcium 7.6 L Total Bilirubin 1.2 H AST 65 H ALT 78 H Alkaline Phosphatase 120 H Total Protein 5.5 L Albumin 2.4 L Blood Type A POSITIVE Antibody Screen Negative Crossmatch See Detail Current Medications Generic Name Dose Route Start Last Admin Trade Name Freq PRN Reason Stop Dose Admin Acetaminophen 650 mg 08/19/18 01:00 08/19/18 17:04 Tylenol - PO 650 mg Q6HPO DUANE Administration Diphenhydramine HCl 12.5 mg 08/17/18 23:18 Benadryl Injection - IVPUSH ONCE PRN FOR ITCHING Docusate Sodium 100 mg 08/17/18 23:18 Colace - PO BID PRN CONSTIPATION Enoxaparin Sodium 40 mg 08/18/18 10:00 08/19/18 10:56 Lovenox - SQ 40 mg DAILY DUANE Administration Ferrous Sulfate 325 mg 08/18/18 22:00 08/19/18 10:58 Feosol - PO 325 mg BID DUANE Administration Ondansetron HCl 4 mg 08/17/18 23:18 Zofran Injection IVPUSH Q4H PRN NAUSEA AND/OR VOMITING Oxycodone HCl 5 mg 08/18/18 11:42 Roxicodone - PO Q4H PRN PAIN LEVEL 1-5 Oxycodone HCl 10 mg 08/18/18 11:43 08/19/18 10:56 Roxicodone - PO 10 mg Q4H PRN Administration PAIN LEVEL 6-10 Polyethylene Glycol 17 gm 08/18/18 10:00 08/19/18 10:56 Miralax (For Daily Use) - PO 17 gm DAILY DUANE Administration Promethazine HCl 12.5 mg 08/17/18 23:18 Phenergan Injection - IVPB Q6H PRN NAUSEA AND/OR VOMITING Senna 2 tab 08/17/18 23:18 Senna - PO HS PRN CONSTIPATION ASSESSMENT/PLAN 37 year old Male with history of HTN, presents with R leg/knee discomfort after fall due to inebriation. 1. R Femur fracture s/p mechanical fall due to Alcohol Intoxication LLE CT - R comminuted, displaced, and impacted distal femur fracture POD 2 s/p ORIF R distal femur [employer] discontinued, Oxycodone prn for Analgesia. Tolerating oral intake - diet resumed. PT Patient does not have insurance for out-patient PT - advised that this is a necessity in order to regain functionality. Post-op recommendations as per Orthopedics (DVT Px - Lovenox for 30 days, Ice/ Elevation RLE in Knee immobilizer, PT Daily: NWB RLE for at least 6 weeks, [place] out POD day 14, Dressing change POD 7 and every 3 days after) - Ortho out-patient follow up. 2. Acute Hepatitis, improving TBil 1.2, AST 65, ALT 78 Likely secondary to Alcohol excess Abdominal US - s/p neno, hepatomegaly Hepatitis panel negative. 3. History of HTN - Stable. Not on any home meds. 4. Acute Blood Loss Anemia sec to Orthopedic Surgery H/H down to 7.4/20.3 from 12.1/35.7 Will transfuse 1 unit PRBCs. Started on Iron supplementation. DVT Px - Lovenox for 30 days post-op Dispo - likely home with crutches, DC instructions as per Ortho. Visit type - Emergency Visit Emergency Visit: Yes ED Registration Date: 08/17/18 Care time: The patient presented to the Emergency Department on the above date and was hospitalized for further evaluation of their emergent condition. - New Patient This patient is new to me today: No - Critical Care Critical Care patient: No - Discharge Referral Referred to [facility] Med P.C.: No
[2018-08-20] MEDS: ACETAMINOPHEN 325 MG TABLET (FP) PO SCH ×4 (00:09→17:00)
[2018-08-20] MEDS: oxyCODONE HCL 5 MG TABLET PO PRN ×2 (02:36→20:09)
[2018-08-20 08:27] LABS: HEMOGLOBIN 8.3 GM/dL (11.7-16.9); MCH 33.3 pg (25.7-33.7); MCHC 35.8 g/dl (32.0-35.9); MEAN CELL VOLUME 92.9 fl (80-96); MEAN PLT VOLUME 6.7 fl (7.5-11.1); PLATELET COUNT 213 K/MM3 (134-434); RBC 2.48 M/mm3 (4.00-5.60); RDW 13.6 % (11.9-15.9); WHITE BLOOD COUNT 6.5 K/mm3 (4.0-10.0)
[2018-08-20 09:00] LABS: ALBUMIN 2.4 g/dl (3.4-5.0); ALK PHOS 102 U/L (45-117); ANION GAP 5 MMOL/L (8-16); BILIRUBIN,TOTAL 0.9 mg/dL (0.2-1); BLOOD UREA NITROGEN 3 mg/dL (7-18); CALCIUM 8.3 mg/dL (8.5-10.1); CHLORIDE 100 mmol/L (98-107); CO2 33 mmol/L (21-32); CREATININE 0.5 mg/dL (0.55-1.3); GLUCOSE,RANDOM 84 mg/dL (74-106); POTASSIUM 3.8 mmol/L (3.5-5.1); SGOT/AST 37 U/L (15-37); SGPT/ALT 57 U/L (13-61); SODIUM 138 mmol/L (136-145); TOT PROT 5.7 g/dl (6.4-8.2)
--- NOTE | 2018-08-20 09:44 | PN ---
Progress Note (short form) - Note Progress Note: ORTHOPEDIC SURGERY PROGRESS NOTE Department of Orthopedic Surgery SUBJECTIVE No acute events overnight. No complaints currently. Denies chest pain, shortness of breath, or calf pain. No nausea or vomiting. Tolerating oral intake. Pain control difficult overnight, but improving. PHYSICAL EXAMINATION General: Alert, oriented, cooperative and no distress. Right Lower Extremity: Dressing and brace intact; Skin intact, no lesions, rashes or ulcers noted. Muscle mass equal and symmetric to contralateral side. No atrophy noted. No masses or effusions noted. LROM secondary to pain in knee s /p ORIF distal femur; EHL/TA/GS motor intact; SILT distally; 2+ DP pulses; Cap refill brisk. Compartments soft / compressible. DVT Exam: No evidence of DVT seen on physical exam; No cords or calf tenderness ; No significant calf/ankle edema. Intake & Output 08/18/18 08/19/18 08/20/18 23:59 23:59 23:59 Intake Total 3025 1475 Output Total 2800 3200 Balance 225 -1725 Intake: IV 2200 Lactated Ringers Solution 1000 1,000 ml @ 125 mls/hr IV [facility] Rx#: [id number] Lactated Ringers Solution 1200 1,000 ml @ 125 mls/hr IV [facility] Rx#: [id number] IVPB 100 100 Oral 725 1025 Packed Cells 350 Output: Urine 2800 3200 Void 2800 3200 Other: Voiding Method Urinal Urinal # Unmeasured Voids Void 200 Bowel Movement No No No Active Medications Generic Name Dose Route Start Last Admin Trade Name Freq PRN Reason Stop Dose Admin Acetaminophen 650 mg 08/19/18 01:00 08/20/18 06:17 Tylenol - PO 650 mg Q6HPO DUANE Administration Diphenhydramine HCl 12.5 mg 08/17/18 23:18 Benadryl Injection - IVPUSH ONCE PRN FOR ITCHING Docusate Sodium 100 mg 08/17/18 23:18 Colace - PO BID PRN CONSTIPATION Enoxaparin Sodium 40 mg 08/18/18 10:00 08/19/18 10:56 Lovenox - SQ 40 mg DAILY DUANE Administration Ferrous Sulfate 325 mg 08/18/18 22:00 08/19/18 21:50 Feosol - PO 325 mg BID DUANE Administration Ondansetron HCl 4 mg 08/17/18 23:18 Zofran Injection IVPUSH Q4H PRN NAUSEA AND/OR VOMITING Oxycodone HCl 5 mg 08/18/18 11:42 Roxicodone - PO Q4H PRN PAIN LEVEL 1-5 Oxycodone HCl 10 mg 08/18/18 11:43 08/20/18 02:36 Roxicodone - PO 10 mg Q4H PRN Administration PAIN LEVEL 6-10 Polyethylene Glycol 17 gm 08/18/18 10:00 08/19/18 10:56 Miralax (For Daily Use) - PO 17 gm DAILY DUANE Administration Promethazine HCl 12.5 mg 08/17/18 23:18 Phenergan Injection - IVPB Q6H PRN NAUSEA AND/OR VOMITING Senna 2 tab 08/17/18 23:18 Senna - PO HS PRN CONSTIPATION Vital Signs (last) Temp Pulse Resp BP Pulse Ox 98.4 F 65 20 108/54 L 100 08/20/18 06:00 08/20/18 06:00 08/20/18 06:00 08/20/18 06:00 08/19/18 21:00 Laboratory (coagulation) PT with INR 11.60 SEC (9.7-13.0) 08/18/18 06:40 Laboratory 08/20/18 07:00 08/20/18 07:00 ASSESSMENT AND PLAN Mr. Potter is a 37 year old male s/p Right distal femur ORIF POD 3 - Pain control: Transition to oral pain medications, minimize narcotic use - Would recommend transfusion secondary to drop in h/h - DVT prophylaxis - Lovenox 40mg SQ daily for 30 days post op - Ice/Elevation RLE in Knee immobilizer. - Elevate HOB, encourage oral intake - Appreciate medical management (Nutrition optimization, decubitus precautions heel/sacrum) - PT Daily: NWB RLE; Active knee ROM only. - Dispo planning - DC [place] POD 14 - Dressing change POD 7, and every 3 days thereafter - Do not keep the pillow under the knee, instead keep under the lower leg/ankle only in order to keep knee extended. - Needs to start outpatient Physical Therapy after discharge. - Patient should follow up in my office in 2 weeks Raffi Nelson, DO Orthopedic Surgery
[2018-08-20] MEDS: ENOXAPARIN NA (PORCINE) 40 MG/0.4 ML DISP.SYRIN SQ SCH (10:03)
[2018-08-20] MEDS: FERROUS SO4 325 MG TABLET (FP) PO SCH ×2 (10:03→21:55)
[2018-08-20] MEDS: POLYETHYLENE GLYCOL 3350 119 GM BTL PO SCH (10:04)
--- NOTE | 2018-08-20 14:36 | DS ---
Physical Exam: SUBJECTIVE: No acute events overnight. Pt reports improved pain with good medication control. Has been using walker and crutches to get around room. Pt tolerating food and passing flatus. OBJECTIVE: Vital Signs Period Temp Pulse Resp BP Sys/Rudolph Pulse Ox Last 24 Hr 98.3 F-99.5 F 65-99 20-20 108-140/54-72 100 PHYSICAL EXAM GENERAL: The patient is awake, alert, and fully oriented, in no acute distress. HEENT: NC/AT, LORIE, sclera anicteric, MMM LUNGS: CTA bilaterally, no wheezes, no crackles, no accessory muscle use. HEART: RRR, S1, S2 without murmur, rub or gallop. ABDOMEN: Soft, nontender, nondistended, normoactive bowel sounds, no guarding EXTREMITIES: 2+ DP pulses, warm, well-perfused, no edema. RLE in knee immobilizer NEUROLOGICAL: Nonfocal. Normal speech, gait not observed. PSYCH: Normal mood, normal affect. SKIN: Warm, dry, no rashes or lesions noted. LABS Laboratory Results - last 24 hr 08/20/18 08/20/18 07:00 07:00 WBC 6.5 RBC 2.48 L Hgb 8.3 L Hct 23.0 L MCV 92.9 MCH 33.3 MCHC 35.8 RDW 13.6 Plt Count 213 MPV 6.7 L Sodium 138 Potassium 3.8 Chloride 100 Carbon Dioxide 33 H Anion Gap 5 L BUN 3 L Creatinine 0.5 L Creat Clearance w eGFR > 60 Random Glucose 84 Calcium 8.3 L Total Bilirubin 0.9 AST 37 ALT 57 Alkaline Phosphatase 102 Total Protein 5.7 L Albumin 2.4 L HOSPITAL COURSE: Date of Admission:08/17/18 Date of Discharge: 08/20/18 Pt admitted on 08/17/18 due to mechanical fall resulting in R distal femur fracture after alcohol intoxication. Pt was evaluated by ortho who performed an ORIF of the R distal femur. Pt's post-operative course was noted to have decrease in Hgb from 12.1 to 7.4. Pt was given 1UPRBC and pt's Hgb stablized to 8.3. Iron supplementation was initiated due to evidence of iron deficiency anemia as well. Pain control was initiated with [employer] Dilaudid and transitioned to oral oxycodone. Unfortunately pt was also found to transaminitis and RUQ U/S and hepatic panels were unrevealing. Pt was counselled on alcohol cessation during his stay and pt was not seen to exhibit any withdrawal symptoms. Pt is being discharged in stable condition back home with VNS and home physical therapy. Outpatient physical therapy treatment was emphasized, however due to insurance reason's pt may not be able to attend. Pt is to continue Lovenox 40mg SQ daily for thrombus prophylaxis for the next 27 days (totalling 30). He is to follow-up with Dr. Nelson, use his knee immobilizer and be completely NWB for at least 6 weeks. Pt is to have dressing changes starting POD 7 q72hrs and on POD 14 have his vicky removed. Minutes to complete discharge: 40 Discharge Summary Reason For Visit: FRACTURE OF RIGHT FEMUR Current Active Problems Femur fracture (Acute) Iron deficiency anemia (Acute) Condition: Improved - Instructions Diet, Activity, Other Instructions: You were admitted to the hospital for a fracture in your right femur. You had surgery to fix this fracture by Dr. Nelson. Having surgery and low movement puts you at risk for developing a blood clot. To make sure you do not develop any blood clots please take: Lovenox 40 mg sq daily, you will have to inject this medication everyday. Visiting nurse service and physical therapy will come to your home to help. Physical therapy is very important for your improvement. Please make an appointment with Dr. Nelson to follow up with his clinic in two weeks. His instructions are below: Use ice to help with your pain Keep your right leg elevated with your knee immobilizer Physical therapy daily: do not weight bear for at least 6 weeks Please follow-up with Dr. Nelson in 2 weeks for your post-operative evaluation. Please start changing your dressing on 08/24/18 and change it every 3 days. MEDICATIONS: You will be sent with a few pills of your pain medication. Please see your primary care physician if you need to continue more. You were found to be anemia during this admission. You were started on iron supplementation and you should continue this. --Because both of these medications are constipating in nature, you should take over the counter Miralax or colace to help stop this Please refrain from drinking as this can impact your liver and other aspects of your health. Referrals: Jitendra Weeks MD [Staff Physician] - Raffi Nelson DO [Staff Physician] - 2 Weeks Disposition: HOME - Home Medications Comprehensive Discharge Medication List: Ambulatory Orders Enoxaparin [Lovenox -] 40 mg SQ DAILY #27 disp.syrin 08/20/18 Ferrous Sulfate [Feosol] 325 mg PO BID #60 ud 08/20/18 Pen Needle, Diabetic [Pen Needle] 1 each MC DAILY #27 dis.needle 08/20/18 Polyethylene Glycol 3350 [Miralax 119 gm Btl -] 17 gm PO DAILY bottle 08/20/18 Sennosides [Senna -] 2 tab PO HS PRN #30 tablet 08/20/18 This patient is new to me today: No Emergency Visit: Yes ED Registration Date: 08/17/18 Care time: The patient presented to the Emergency Department on the above date and was hospitalized for further evaluation of their emergent condition. Critical Care patient: No - Discharge Referral Referred to [facility] Med P.C.: No
--- NOTE | 2018-08-20 16:18 | PN ---
Teaching Attending Note Name of Resident: Garo Fraser ATTENDING PHYSICIAN STATEMENT I saw and evaluated the patient. I reviewed the resident's note and discussed the case with the resident. I agree with the resident's findings and plan as documented. SUBJECTIVE: Complains of some ongoing R leg discomfort POD 3 s/p ORIF, improved with analgesia. No CP/palps/SOB. Tolerating po intake. No fever/chills. OBJECTIVE: Afebrile, Hemodynamically Stable. Last Vital Signs Temp Pulse Resp BP Pulse Ox 98.5 F 83 20 115/65 100 08/20/18 14:51 08/20/18 14:51 08/20/18 14:51 08/20/18 14:51 08/19/18 21:00 HEENT - Atraumatic, Normocephalic Neuro - AAO x 3. Tone/Power normal - All extremities neurovascularly intact. Heart - S1, S2, RRR Lungs - clear to auscultation, no crackles/wheeze. Abdomen - Soft, non-tender. Bowel Sounds normal. Extremities - No calf swelling/tenderness. RLE surgical site dressed. Laboratory Results - last 24 hr 08/20/18 08/20/18 07:00 07:00 WBC 6.5 RBC 2.48 L Hgb 8.3 L Hct 23.0 L MCV 92.9 MCH 33.3 MCHC 35.8 RDW 13.6 Plt Count 213 MPV 6.7 L Sodium 138 Potassium 3.8 Chloride 100 Carbon Dioxide 33 H Anion Gap 5 L BUN 3 L Creatinine 0.5 L Creat Clearance w eGFR > 60 Random Glucose 84 Calcium 8.3 L Total Bilirubin 0.9 AST 37 ALT 57 Alkaline Phosphatase 102 Total Protein 5.7 L Albumin 2.4 L Current Medications Generic Name Dose Route Start Last Admin Trade Name Freq PRN Reason Stop Dose Admin Acetaminophen 650 mg 08/19/18 01:00 08/20/18 06:17 Tylenol - PO 650 mg Q6HPO DUANE Administration Diphenhydramine HCl 12.5 mg 08/17/18 23:18 Benadryl Injection - IVPUSH ONCE PRN FOR ITCHING Docusate Sodium 100 mg 08/17/18 23:18 Colace - PO BID PRN CONSTIPATION Enoxaparin Sodium 40 mg 08/18/18 10:00 08/20/18 10:03 Lovenox - SQ 40 mg DAILY DUANE Administration Ferrous Sulfate 325 mg 08/18/18 22:00 08/20/18 10:03 Feosol - PO 325 mg BID DUANE Administration Ondansetron HCl 4 mg 08/17/18 23:18 Zofran Injection IVPUSH Q4H PRN NAUSEA AND/OR VOMITING Oxycodone HCl 5 mg 08/18/18 11:42 Roxicodone - PO Q4H PRN PAIN LEVEL 1-5 Oxycodone HCl 10 mg 08/18/18 11:43 08/20/18 02:36 Roxicodone - PO 10 mg Q4H PRN Administration PAIN LEVEL 6-10 Polyethylene Glycol 17 gm 08/18/18 10:00 08/20/18 10:04 Miralax (For Daily Use) - PO 17 gm DAILY DUANE Administration Promethazine HCl 12.5 mg 08/17/18 23:18 Phenergan Injection - IVPB Q6H PRN NAUSEA AND/OR VOMITING Senna 2 tab 08/17/18 23:18 Senna - PO HS PRN CONSTIPATION ASSESSMENT/PLAN 37 year old Male with history of HTN, presents with R leg/knee discomfort after fall due to inebriation. 1. R Femur fracture s/p mechanical fall due to Alcohol Intoxication LLE CT - R comminuted, displaced, and impacted distal femur fracture POD 3 s/p ORIF R distal femur [employer] discontinued, Oxycodone prn for Analgesia. Tolerating oral intake. Patient does not have insurance for out-patient PT - advised that this is a necessity in order to regain functionality. Post-op recommendations as per Orthopedics (DVT Px - Lovenox for 30 days, Ice/ Elevation RLE in Knee immobilizer, PT Daily: NWB RLE for at least 6 weeks, [place] out at POD day 14, Dressing change POD 7 and every 3 days after) - Ortho out-patient follow up. 2. Acute Hepatitis, improving Likely secondary to Alcohol excess Abdominal US - s/p neno, hepatomegaly Hepatitis panel negative. 3. History of HTN - Stable. Not on any home meds. 4. Acute Blood Loss Anemia sec to Orthopedic Surgery H/H 8.3 s/p 1 unit PRBCs. Started on Iron supplementation. DVT Px - Lovenox for 30 days post-op Dispo - likely home with crutches, outpatient PT, DC instructions as per Ortho.
[2018-08-21] MEDS: ACETAMINOPHEN 325 MG TABLET (FP) PO SCH ×3 (00:41→11:01)
[2018-08-21 06:38] VITALS: TEMP 98.3
--- NOTE | 2018-08-21 08:53 | PN ---
Progress Note (short form) - Note Progress Note: ORTHOPEDIC SURGERY PROGRESS NOTE Department of Orthopedic Surgery SUBJECTIVE No acute events overnight. No complaints currently. Denies chest pain, shortness of breath, or calf pain. No nausea or vomiting. Tolerating oral intake. Pain control difficult overnight, but improving. PHYSICAL EXAMINATION General: Alert, oriented, cooperative and no distress. Right Lower Extremity: Dressing and brace intact; Skin intact, no lesions, rashes or ulcers noted. Muscle mass equal and symmetric to contralateral side. No atrophy noted. No masses or effusions noted. LROM secondary to pain in knee s /p ORIF distal femur; EHL/TA/GS motor intact; SILT distally; 2+ DP pulses; Cap refill brisk. Compartments soft / compressible. DVT Exam: No evidence of DVT seen on physical exam; No cords or calf tenderness ; No significant calf/ankle edema. Intake & Output 08/18/18 08/19/18 08/20/18 23:59 23:59 23:59 Intake Total 3025 1475 Output Total 2800 3200 Balance 225 -1725 Intake: IV 2200 Lactated Ringers Solution 1000 1,000 ml @ 125 mls/hr IV [facility] Rx#: [id number] Lactated Ringers Solution 1200 1,000 ml @ 125 mls/hr IV ASDIR [facility] Rx#: [id number] IVPB 100 100 Oral 725 1025 Packed Cells 350 Output: Urine 2800 3200 Void 2800 3200 Other: Voiding Method Urinal Urinal # Unmeasured Voids Void 200 Bowel Movement No No No Active Medications Generic Name Dose Route Start Last Admin Trade Name Freq PRN Reason Stop Dose Admin Acetaminophen 650 mg 08/19/18 01:00 08/20/18 06:17 Tylenol - PO 650 mg Q6HPO DUANE Administration Diphenhydramine HCl 12.5 mg 08/17/18 23:18 Benadryl Injection - IVPUSH ONCE PRN FOR ITCHING Docusate Sodium 100 mg 08/17/18 23:18 Colace - PO BID PRN CONSTIPATION Enoxaparin Sodium 40 mg 08/18/18 10:00 08/19/18 10:56 Lovenox - SQ 40 mg DAILY DUANE Administration Ferrous Sulfate 325 mg 08/18/18 22:00 08/19/18 21:50 Feosol - PO 325 mg BID DUANE Administration Ondansetron HCl 4 mg 08/17/18 23:18 Zofran Injection IVPUSH Q4H PRN NAUSEA AND/OR VOMITING Oxycodone HCl 5 mg 08/18/18 11:42 Roxicodone - PO Q4H PRN PAIN LEVEL 1-5 Oxycodone HCl 10 mg 08/18/18 11:43 08/20/18 02:36 Roxicodone - PO 10 mg Q4H PRN Administration PAIN LEVEL 6-10 Polyethylene Glycol 17 gm 08/18/18 10:00 08/19/18 10:56 Miralax (For Daily Use) - PO 17 gm DAILY DUANE Administration Promethazine HCl 12.5 mg 08/17/18 23:18 Phenergan Injection - IVPB Q6H PRN NAUSEA AND/OR VOMITING Senna 2 tab 08/17/18 23:18 Senna - PO HS PRN CONSTIPATION Vital Signs (last) Temp Pulse Resp BP Pulse Ox 98.4 F 65 20 108/54 L 100 08/20/18 06:00 08/20/18 06:00 08/20/18 06:00 08/20/18 06:00 08/19/18 21:00 Laboratory (coagulation) PT with INR 11.60 SEC (9.7-13.0) 08/18/18 06:40 Laboratory 08/20/18 07:00 08/20/18 07:00 ASSESSMENT AND PLAN Mr. Potter is a 37 year old male s/p Right distal femur ORIF POD 4 - Pain control: Transition to oral pain medications, minimize narcotic use - Follow H/H - DVT prophylaxis - Lovenox 40mg SQ daily for 30 days post op - Ice/Elevation RLE in Knee immobilizer. - Elevate HOB, encourage oral intake - Appreciate medical management (Nutrition optimization, decubitus precautions heel/sacrum) - PT Daily: NWB RLE; Active knee ROM only. - Dispo planning - DC [place] POD 14 - Dressing change POD 7, and every 3 days thereafter - Do not keep the pillow under the knee, instead keep under the lower leg/ankle only in order to keep knee extended. - Needs to start outpatient Physical Therapy after discharge. - Patient should follow up in my office in post op day 14. Call for appointment [phone]. Raffi Nelson, DO Orthopedic Surgery
[2018-08-21] MEDS: FERROUS SO4 325 MG TABLET (FP) PO SCH (09:36)
[2018-08-21] MEDS: ENOXAPARIN NA (PORCINE) 40 MG/0.4 ML DISP.SYRIN SQ SCH (09:36)
[2018-08-21] MEDS: POLYETHYLENE GLYCOL 3350 119 GM BTL PO SCH (11:00)
[2018-08-21 11:15] VITALS: BP 116/59; PULSE 80
--- NOTE | 2018-08-21 13:25 | PN ---
Teaching Attending Note Name of Resident: Pham Crocker ATTENDING PHYSICIAN STATEMENT I saw and evaluated the patient. I reviewed the resident's note and discussed the case with the resident. I agree with the resident's findings and plan as documented. SUBJECTIVE:pain controlled with medication. denies CP, SOB, fever, chills, N/v/C /D OBJECTIVE: Last Vital Signs Temp Pulse Resp BP Pulse Ox 98.3 F 80 18 116/59 L 100 08/21/18 06:00 08/21/18 10:00 08/21/18 10:00 08/21/18 10:00 08/21/18 09:00 General NAD CV S1 S2 RRR no murmur/rub/gallop Lungs CTA B/L no wheezing/rales/rhonchi Extremities RLE in immobilizer. pulse intact ASSESSMENT AND PLAN: 37 year old Male with history of HTN, presents with R leg/knee discomfort after fall due to inebriation. 1. R Femur fracture s/p mechanical fall due to Alcohol Intoxication- s/p ORIF of distal femur. recommendation as per ortho. will need to have workup done as outpatient to r/o causes of pathological fracture as pt broke his femur at standing height. insurance does not cover [facility] so will be going home with home PT 2. Acute Hepatitis- due to ETOH. u/s reviewed. now resolved 3. ETOH abuse- no signs of withdrawal. counseled on abstinence 4. Hx of HTN- remained normotensive here off medications. does not require medications at this time 5. acute blood loss anemia- due to surgery. s/p 1 unit PRBC this hospital stay. on iron supplements. will need iron studies repeated in 3 months 6. DVT ppx- lovenox x4 weeks 7. counseled importance of medication compliance and follow up. was d/c yesterday however had no transportation and plan to leave today.
== END 2018-08-21 17:17 | disposition home or self-care (01) | DRG 308 ==
LOC: JER 01:40 → JERBED 05:31 → J6S 15:11
PROVIDERS: ADMIT Internal Medicine; ATTEND Internal Medicine
PROC: 0QS604Z Reposition Right Upper Femur with Internal Fixation Device, Open Approach (ICD-10-PCS; principal; 2018-08-17 17:45)
DX: S72.491A Other fracture of lower end of right femur, initial encounter for closed fracture (principal); I10 Essential (primary) hypertension; F10.129 Alcohol abuse with intoxication, unspecified; D62 Acute posthemorrhagic anemia; K70.10 Alcoholic hepatitis without ascites; Z87.891 Personal history of nicotine dependence; W18.39XA Other fall on same level, initial encounter; B17.9 Acute viral hepatitis, unspecified; Y90.9 Presence of alcohol in blood, level not specified; K76.0 Fatty (change of) liver, not elsewhere classified; R74.0 Nonspecific elevation of levels of transaminase and lactic acid dehydrogenase [LDH]; R16.0 Hepatomegaly, not elsewhere classified
CPT/HCPCS: 36415; 36430; 71045-TC-FY; 73523-TC-FY; 73552-TC-RT-FY; 73560-TC-RT-FY; 73564-TC-RT-FY; 73700-TC-RT; 76000-TC-FY; 76705-TC; 80053; 80074; 80307; 81003; 82248; 85025; 85027; 85610; 85730; 86317; 86704; 86705; 86706; 86708; 86850; 86900; 86901; 86922; 87340; 87522; 93005; 93010; 94760; 97116-GP; 97161-GP; 99285-25; P9038; P9058

== ENCOUNTER 2018-09-17 10:07 | Emergency (ER) | payer SELFPAY ==
[2018-09-17 10:20] VITALS: BP 111/69; PULSE 91; TEMP 97.9; BMI 29.5
--- NOTE | 2018-09-17 12:12 | PDOC ---
History of Present Illness - General Chief Complaint: Suture/Staple Removal(Here) Stated Complaint: SUTURE REMOVALE\ Time Seen by Provider: 09/17/18 11:16 - History of Present Illness Initial Comments: 09/17/18 12:08 37-year-old male presents to the emergency room for staple removal. He had femoral open reduction internal fixation month ago and never followed up never started physical therapy. His original Aquasol from the operating room has been left in place and he has been weightbearing on the extremity Past History - Past Medical History Allergies/Adverse Reactions: Allergies Allergy/AdvReac Type Severity Reaction Status Date / Time No Known Allergies Allergy Verified 09/17/18 10:16 Home Medications: Ambulatory Orders Enoxaparin [Lovenox -] 40 mg SQ DAILY #27 disp.syrin 08/20/18 Ferrous Sulfate [Feosol] 325 mg PO BID #60 ud 08/20/18 Polyethylene Glycol 3350 [Miralax 119 gm Btl -] 17 gm PO DAILY bottle 08/20/18 Sennosides [Senna -] 2 tab PO HS PRN #30 tablet 08/20/18 COPD: No - Surgical History Abdominal Surgery: Yes - Immunization History Immunization Up to Date: Yes - Suicide/Smoking/Psychosocial Hx Smoking History: Current every day smoker Have you smoked in the past 12 months: No Number of Cigarettes Smoked Daily: 10 Information on smoking cessation initiated: No Hx Alcohol Use: No Drug/Substance Use Hx: No Review of Systems - Review of Systems Constitutional: No: Fever Musculoskeletal: Yes: See HPI *Physical Exam - Vital Signs Last Vital Signs Temp Pulse Resp BP Pulse Ox 97.9 F 91 H 16 111/69 96 09/17/18 10:16 09/17/18 10:16 09/17/18 10:16 09/17/18 10:16 09/17/18 10:16 - Physical Exam Comments: 09/17/18 12:09 Surgical dressing was removed and wound was visualized. Incision is clean dry and intact and appears to be well-healed from what I can see. Thighs and calves are soft and nontender. He has no gross sensorimotor deficits. Normal skin color and temperature surrounding the wound. Moderate Sedation - Procedure Monitoring Vital Signs: Procedure Monitoring Vital Signs Temperature 97.9 F 09/17/18 10:16 Pulse Rate 91 H 03/18/19 10:16 Respiratory Rate 16 09/17/18 10:16 Blood Pressure 111/69 09/17/18 10:16 O2 Sat by Pulse Oximetry (%) 96 09/17/18 10:16 ED Treatment Course - RADIOLOGY Radiology Studies Ordered: Category Date Time Status FEMUR-RIGHT [RAD] Stat Radiology 09/17/18 11:39 Taken Medical Decision Making - Medical Decision Making 09/17/18 12:09 [place] were removed with a staple remover, tincture of benzoin and Steri- Strips were applied to the wound. A dry sterile dressing was placed loosely over the wound and the patient was placed back in a knee immobilizer and instructed not to weight-bear follow-up with orthopedics in the next 1-2 days for physical therapy prescription and further evaluation and treatment. He is to remain nonweightbearing this was discussed explicitly with the patient. And he understands he has to follow-up and remain nonweightbearing. X-rays taken of the right femur show well-seeded hardware *DC/Admit/Observation/Transfer Diagnosis at time of Disposition: Femur fracture - Discharge Dispostion Disposition: HOME Condition at time of disposition: Stable Decision to Admit order: No - Referrals Referrals: Raffi Nelson DO [Staff Physician] - - Patient Instructions Printed Discharge Instructions: How to Care for a Surgical Wound-[place] Additional Instructions: Do not put any weight on your right leg. Remain nonweightbearing with the use of crutches. Please keep the area of the wound clean and dry. He may wash with soap and water in the shower and leave it open to air do not apply any ointments. If you aren't going to be in the knee immobilizer at home or leaving the house you must cover the wound with dry sterile gauze to prevent irritation from the knee immobilizer. You must start physical therapy immediately please follow-up with your orthopedic surgeon in the next 1-2 days for physical therapy prescription and for further evaluation and treatment. If you fail to follow-up you could have permanent damage from the injury and lack of follow-up and physical therapy. Return to the emergency room for further issues - Post Discharge Activity
== END 2018-09-17 12:15 | disposition home or self-care (01) ==
LOC: JERFT 10:07
DX: Z47.89 Encounter for other orthopedic aftercare (principal); Z48.02 Encounter for removal of sutures
CPT/HCPCS: 73552-TC-RT-FY; 99281-25